=== PATIENT | female | born 1990 | race American Indian/Alaskan Native ===

== ENCOUNTER 2019-09-10 20:47 | Inpatient (IN) | payer MEDICAID, OTHER ==
[2019-09-10] MEDS ORDERED: levETIRAcetam 1000 MG/NS 0.75% 1,000 MG/100 ML BAG IV ONE (21:16)
--- NOTE | 2019-09-10 21:16 | Emergency Department Report ---
HPI - General Time Seen by Provider: 09/10/19 20:51 - HPI HPI: Room 3 The patient is an adult female presenting with a chief complaint of status epilepticus. Per EMS they arrived at the home with report of seizures. Per family the patient had 3 seizures prior to EMS arrival. Upon EMS arrival patient was having a generalized tonic-clonic seizure. The patient was administered Ativan 2 mg nasally 2. EMS states the patient has been seizing for approximately 15 minutes and may have stopped for approximately 2-3 minutes during that time. Patient is currently postictal and does not respond to sternal rub Location: [See above] Duration: [See above] Quality: [See above] Severity: [See above] Timing: [See above] Context: [See above] Modifying factors: [See above] Associated signs and symptoms: [see above] ED Past Medical Hx - Past Medical History Previous Medical History?: Yes Hx Hypertension: Yes Hx Seizures: Yes - Surgical History Past Surgical History?: Yes Additional Surgical History: unknown/ unable to obtain patient is drowsy - Family History Family history: no significant - Social History Smoking Status: Unknown if ever smoked Substance Use Type: None ED Review of Systems ROS: Stated complaint: SEIZURES Other details as noted in HPI Comment: Unobtainable due to pts medical conditions Physical Exam - Physical Exam Vital Signs: Vital Signs 09/10/19 20:51 Temperature 98.6 F Pulse Rate 101 H Respiratory 16 Rate Blood Pressure 152/68 Blood Pressure 156/82 [Left] O2 Sat by Pulse 100 Oximetry Physical Exam: GENERAL: The patient is well-developed well-nourished []. [] HEENT: Normocephalic. Atraumatic. Extraocular motions are intact. Patient has moist mucous membranes. NECK: Supple. No meningitic signs are noted. There is no adenopathy noted. CHEST/LUNGS: Clear to auscultation. There is no respiratory distress noted. HEART/CARDIOVASCULAR: Regular. There is no tachycardia. There is no gallop rub or murmur. ABDOMEN: Abdomen is soft, nontender. Patient has normal bowel sounds. There is no abdominal distention. SKIN: There is no rash. There is no edema. There is no diaphoresis. NEURO: The patient is awake, alert, and oriented. The patient is cooperative. The patient has no focal neurologic deficits. The patient has normal speech and gait. MUSCULOSKELETAL: There is no tenderness or deformity. There is no limitation range of motion. There is no evidence of acute injury. ED Course Vital Signs 09/10/19 20:51 Temperature 98.6 F Pulse Rate 101 H Respiratory 16 Rate Blood Pressure 152/68 Blood Pressure 156/82 [Left] O2 Sat by Pulse 100 Oximetry - Reevaluation(s) Reevaluation #1: 09/10/19 21:55 Patient began having another "seizure" which did not stop with sternal rub or ammonia capsule administration. Subsequently the decision to intubate using RSI was made for status epilepticus - Intubation Time Out Performed: No Sedative: Versed Mg Given: 5 Paralytic: Succinylcholine Mg Given: 100 Laryngoscope: Cher Size: 3 ET Tube Size: 7 Tube Secured Depth (cm): 21 Tube Secured Location: lips Tube Placement Confirmation: visualized tube passing t, equal breath sounds bilat, no breath sounds over epi, confirmation by capnometr Patient Tolerated Procedure: well, no complications Intubation Complications: none ED Medical Decision Making - Lab Data Result diagrams: 09/10/19 21:04 09/10/19 21:04 Laboratory Tests 09/10/19 09/10/19 09/10/19 12:56 21:04 21:04 WBC 7.0 RBC 4.43 Hgb 12.4 Hct 38.5 MCV 87 MCH 28 MCHC 32 RDW 21.1 H Plt Count 314 Lymph % (Auto) 43.8 H [place] % (Auto) 7.8 H Eos % (Auto) 1.5 Baso % (Auto) 0.7 Lymph # 3.1 [place] # 0.6 Eos # 0.1 Baso # 0.0 Seg Neutrophils % 46.2 Seg Neutrophils # 3.3 Sodium 141 Potassium 4.2 Chloride 104.1 Carbon Dioxide 18 L Anion Gap 23 BUN 15 Creatinine 0.8 Estimated GFR > 60 BUN/Creatinine Ratio 19 Glucose 86 Calcium 9.4 Magnesium 2.00 HCG, Qual Negative Phenytoin 09/10/19 21:04 WBC RBC Hgb Hct MCV MCH MCHC RDW Plt Count Lymph % (Auto) [place] % (Auto) Eos % (Auto) Baso % (Auto) Lymph # [place] # Eos # Baso # Seg Neutrophils % Seg Neutrophils # Sodium Potassium Chloride Carbon Dioxide Anion Gap BUN Creatinine Estimated GFR BUN/Creatinine Ratio Glucose Calcium Magnesium HCG, Qual Phenytoin 0.8 L - Radiology Data Radiology results: report reviewed (chest x-ray, CT head), image reviewed (chest x-ray, CT head) interpreted by me: Chest x-ray-ET tube in place. No pneumothorax [address] [address] XRay Report Signed Patient: CHRISTOPHER ARNETT MR#: [id number] : 1990 Acct:[id number] Age/Sex: 29 / F ADM Date: 09/10/19 Loc: ED Attending Dr: Ordering Physician: SARANYA DE SANTIAGO MD Date of Service: 09/10/19 Procedure(s): XR chest 1V ap Accession Number(s): [id number] cc: SARANYA DE SANTIAGO MD Fluoro Time In Minutes: CHEST 1 VIEW INDICATION: status post intubation. COMPARISON: Endotracheal tube and NG tube in satisfactory position. FINDINGS: Support devices: 06/20/2018. Heart: Within normal limits. Lungs/Pleura: No acute air space or interstitial disease. Additional findings: None. IMPRESSION: 1. Lines and tubes in satisfactory position. 2. Lungs clear. Signer Name: Jean Weeks MD Signed: 09/10/2019 10:18 PM Workstation Name: [id number] Transcribed By: ES Dictated By: Jean Weeks MD Electronically Authenticated By: Jean Weeks MD Signed Date/Time: 09/10/192217 DD/ 16 TD/TT: [address] [address] Cat Scan Report Signed Patient: CHRISTOPHER ARNETT MR#: [id number] : 1990 Acct:[id number] Age/Sex: 29 / F ADM Date: 09/10/19 Loc: ED Attending Dr: Ordering Physician: SARANYA DE SANTIAGO MD Date of Service: 09/10/19 Procedure(s): CT head/brain wo con Accession Number(s): [id number] cc: SARANYA DE SANTIAGO MD CT HEAD WITHOUT CONTRAST HISTORY: status epilepticus COMPARISON: None TECHNIQUE: CT imaging of the head was performed in the axial, sagittal, and coronal projections and bone algorithm in axial projection in the soft tissue algorithm. All CT scans at this location are performed using CT dose reduction for ALARA by means of automated exposure control. CONTRAST: None. FINDINGS: Cerebral and Cerebellar Hemispheres: No evidence of mass or mass effect. No midline shift. No acute hemorrhage. No acute cortical infarction. No extra-axial fluid collection. Ventricles: Normal in size and configuration for age. Osseous Structures: No significant abnormality. Visualized Paranasal Sinuses: No significant abnormality. Additional Findings: None IMPRESSION: 1. No acute intracranial abnormality. NOTE: Acute infarct may not be visible by noncontrast CT. Signer Name: Delonte Perez MD Signed: 09/11/2019 12:55 AM Workstation Name: [id number] Transcribed By: WG Dictated By: Delonte Perez MD Electronically Authenticated By: Delonte Perez MD Signed Date/Time: 09/11/1954 DD/ TD/TT: - Differential Diagnosis status epilepticus Critical care attestation.: If time is entered above; I have spent that time in minutes in the direct care of this critically ill patient, excluding procedure time. ED Disposition Clinical Impression: Status epilepticus Disposition: DC-09 OP ADMIT IP TO THIS HOSP Is pt being admited?: Yes Does the pt Need Aspirin: No Condition: Fair Ref[facility]: [facility] MD KIM[place]LY [Primary Care Provider] - 3-5 Days Time of Disposition: 01:04 (hospitalist paged (Dr De Leon))
[2019-09-10 21:40] LABS: Basophils % (Auto) 0.7 % (0.0-1.8); Eosinophils # (Auto) 0.1 K/mm3 (0.0-0.4); Eosinophils % (Auto) 1.5 % (0.0-4.3); Hematocrit 38.5 % (30.3-42.9); Hemoglobin 12.4 gm/dl (10.1-14.3); Lymphocytes # (Auto) 3.1 K/mm3 (1.2-5.4); Lymphocytes % (Auto) 43.8 % (13.4-35.0); Mean Corpuscular HGB Conc 32 % (30-34); Mean Corpuscular Volume 87 fl (79-97); Monocytes # (Auto) 0.6 K/mm3 (0.0-0.8); Monocytes % (Auto) 7.8 % (0.0-7.3); Platelet Count 314 K/mm3 (140-440); Red Blood Count 4.43 M/mm3 (3.65-5.03); Red Cell Distribution Width 21.1 % (13.2-15.2)
[2019-09-10] MEDS ORDERED: AMMONIA INHALANT IH ONE ×2 (21:45→21:46)
[2019-09-10 21:56] LABS: BUN/Creatinine Ratio 19; Blood Urea Nitrogen 15 mg/dL (7-17); Calcium 9.4 mg/dL (8.4-10.2); Hemolysis Index 30
[2019-09-10] MEDS ORDERED: FOSPHENYTOIN 1,000 MG.PE in SODIUM CHLORIDE 0.9% 100 ML IV ONE (22:21)
--- NOTE | 2019-09-10 22:22 | XRay Report ---
CHEST 1 VIEW INDICATION: status post intubation. COMPARISON: Endotracheal tube and NG tube in satisfactory position. FINDINGS: Support devices: 06/20/2018. Heart: Within normal limits. Lungs/Pleura: No acute air space or interstitial disease. Additional findings: None. IMPRESSION: 1. Lines and tubes in satisfactory position. 2. Lungs clear. Signer Name: Jean Weeks MD Signed: 09/10/2019 10:18 PM Workstation Name: [id number]
[2019-09-10] MEDS ORDERED: MIDAZOLAM 2 MG/2 ML INJ IV PRN (22:41)
[2019-09-10] MEDS ORDERED: MINERAL OIL/PETROLATUM, WHITE OPHTH OINT 3.5 GM OU PRN (22:41)
[2019-09-10] MEDS ORDERED: LIP THERAPY VASELINE TP PRN (22:41)
[2019-09-10] MEDS ORDERED: MIDAZOLAM 100 MG in SODIUM CHLORIDE 0.9% 80 ML IV SCH (23:00)
--- NOTE | 2019-09-11 01:00 | Cat Scan Report ---
CT HEAD WITHOUT CONTRAST HISTORY: status epilepticus COMPARISON: None TECHNIQUE: CT imaging of the head was performed in the axial, sagittal, and coronal projections and bone algori thm in axial projection in the soft tissue algorithm. All CT scans at this location are performed using CT dose reduction for ALARA by means of automated e xposure control. CONTRAST: None. FINDINGS: Cerebral and Cerebellar Hemispheres: No evidence of mass or mass effect. No midline shift. No acute hemorrhage. No acute cortical infarction. No extra-axial fluid collection. Ventricles: Normal in size and configuration for age. Osseous Structures: No significant abnormality. Visualized Paranasal Sinuses: No significant abnormality. Additional Findings: None IMPRESSION: 1. No acute intracranial abnormality. NOTE: Acute infarct may not be visible by noncontrast CT. Signer Name: Delonte Perez MD Signed: 09/11/2019 12:55 AM Workstation Name: [id number]
[2019-09-11] MEDS ORDERED: ACETAMINOPHEN 325 MG TAB PO PRN (02:26)
[2019-09-11] MEDS ORDERED: MAGNESIUM HYDROXIDE (MOM) ORAL LIQD UDC PO PRN (02:26)
[2019-09-11] MEDS ORDERED: ONDANSETRON 4 MG/2 ML INJ IV PRN (02:26)
[2019-09-11] MEDS ORDERED: MORPHINE 2 MG/1 ML INJ IV PRN (02:26)
[2019-09-11] MEDS ORDERED: LIDOCAINE PF 100 MG/5 ML (CARDIAC SYRINGE) IV ONE (03:00)
[2019-09-11] MEDS ORDERED: SUCCINYLCHOLINE CHLORIDE 200 MG/10 ML INJ MDV ONE (03:00)
[2019-09-11] MEDS ORDERED: MIDAZOLAM 5 MG/5 ML INJ MDV IV ONE (03:00)
--- NOTE | 2019-09-11 03:44 | History and Physical Report ---
History of Present Illness Date of examination: 09/11/19 Date of admission: 09/11/19 03:23 Chief complaint: Seizure disorder History of present illness: 29-year-old -Japanese female with history of seizure disorder was brought into the emergency room today by EMS having had seizures at home. She was said to have had 3 episodes of seizures prior to reporting to the emergency room. There has been no known history of head injury, no urinary or fecal incont inence. Patient was loaded with IV Keppra and Dilantin in the emergency room. She was also subsequently intubated for airway protection in the emergency room. Past History Past Medical History: hypertension, seizures Past Surgical History: No surgical history Social history: no significant social history Family history: no significant family history Medications and Allergies Allergies Allergy/AdvReac Type Severity Reaction Status Date / Time Unable to Assess Allergy Verified 09/10/19 22:24 Active Meds: Active Medications Acetaminophen (Tylenol) 650 mg PO Q4H PRN PRN Reason: Pain MILD(1-3)/Fever >100.5/GARRETT Hydrophilic Ointment (Vaseline Lip Therapy) 1 applic TP Q2HR PRN PRN Reason: Dry Lips Midazolam HCl 100 mg/ Sodium (Chloride) 100 mls @ 2 mls/hr IV TITR WALLACE; Protocol Levetiracetam 500 mg/ Dextrose 105 mls @ 400 mls/hr IV Q12HR WALLACE Magnesium Hydroxide (Milk Of Magnesia) 30 ml PO Q4H PRN PRN Reason: Constipation Midazolam HCl (Versed) 2 mg IV Q10MIN PRN PRN Reason: Sedation Morphine Sulfate (Morphine) 2 mg IV Q4H PRN PRN Reason: Pain, Moderate (4-6) Multi-Ingred Cream/Lotion/Oil/Oint (Artificial Tears Ophth Oint) 1 applic OU Q4HR PRN PRN Reason: Dry Eye(s) Ondansetron HCl (Zofran) 4 mg IV Q8H PRN PRN Reason: Nausea And Vomiting Sodium Chloride (Sodium Chloride Flush Syringe 10 Ml) 10 ml IV BID WALLACE Sodium Chloride (Sodium Chloride Flush Syringe 10 Ml) 10 ml IV PRN PRN PRN Reason: LINE FLUSH Review of Systems ROS unobtainable: due to endotracheal tube Exam - Constitutional Vitals: Temp Pulse Resp BP Pulse Ox 98.6 F 87 15 129/81 100 09/10/19 20:51 09/11/19 00:30 09/11/19 03:00 09/11/19 03:34 09/11/19 03:34 General appearance: Present: well-nourished, other (Intubated, alert and able to make gestures) - EENT Eyes: Present: PERRL, EOM intact ENT: hearing intact, clear oral mucosa, dentition normal - Neck Neck: Present: supple, normal ROM - Respiratory Respiratory effort: normal Respiratory: bilateral: CTA - Cardiovascular Rhythm: regular Heart Sounds: Present: S1 & S2 - Extremities Extremities: no ischemia, pulses intact, No edema, Full ROM Peripheral Pulses: within normal limits - Abdominal General gastrointestinal: Present: soft, non-tender, non-distended, normal bowel sounds - Integumentary Integumentary: Present: clear, warm, dry - Musculoskeletal Musculoskeletal: strength equal bilaterally - Psychiatric Psychiatric: appropriate mood/affect, intact judgment & insight, cooperative - Neurologic Neurologic: CNII-XII intact, moves all extremities Results - Labs CBC & Chem 7: 09/10/19 21:04 09/10/19 21:04 Labs: Abnormal lab results 09/10/19 09/10/19 09/10/19 Range/Units 21:04 21:04 21:04 RDW 21.1 H (13.2-15.2) % Lymph % (Auto) 43.8 H (13.4-35.0) % [place] % (Auto) 7.8 H (0.0-7.3) % POC ABG pO2 (80-105) Carbon Dioxide 18 L (22-30) mmol/L Phenytoin 0.8 L (10.0-20.0) ug/mL 09/10/19 Range/Units 22:57 RDW (13.2-15.2) % Lymph % (Auto) (13.4-35.0) % [place] % (Auto) (0.0-7.3) % POC ABG pO2 181 H (80-105) Carbon Dioxide (22-30) mmol/L Phenytoin (10.0-20.0) ug/mL Assessment and Plan - Patient Problems (1) Status epilepticus Current Visit: Yes Status: Acute Plan to address problem: Patient has been started on IV Keppra . She has been loaded with IV Keppra and Dilantin in the emergency room. We requested neurology follow-up in the a.m. (2) DVT prophylaxis Current Visit: Yes Status: Acute Plan to address problem: Patient placed on subcutaneous heparin. (3) Full code status Current Visit: Yes Status: Acute
[2019-09-11 07:19] LABS: Amphetamine Screen,Urine PRESUMPTIVE NEGATIVE; Cannabinoid Screen,Urine PRESUMPTIVE NEGATIVE; Cocaine Screen,Urine PRESUMPTIVE NEGATIVE; Methadone Screen,Urine PRESUMPTIVE NEGATIVE; Opiate Screen,Urine PRESUMPTIVE NEGATIVE
[2019-09-11 07:33] LABS: Benzodiazepines Screen,Urine PRESUMPTIVE POSITIVE
--- NOTE | 2019-09-11 07:56 | XRay Report ---
CHEST 1 VIEW INDICATION / CLINICAL INFORMATION: follow up respiratory failure. COMPARISON: 09/10/2019 FINDINGS: SUPPORT DEVICES: Endotracheal tube remains in satisfactory position. Nasogastric tube is no longer id entified. HEART / MEDIASTINUM: No significant abnormality. LUNGS / PLEURA: No significant pulmonary or pleural abnormality. No pneumothorax. ADDITIONAL FINDINGS: No significant additional findings. IMPRESSION: 1. No acute findings. Signer Name: García Mora MD Signed: 09/11/2019 7:52 AM Workstation Name: [id number]
[2019-09-11] MEDS ORDERED: levETIRAcetam 500 MG in DEXTROSE 5% IN WATER 100 ML IV SCH (10:00)
--- NOTE | 2019-09-11 10:58 | Consultation ---
History of Present Illness Consult date: 09/11/19 Reason for consult: other (Seizures) History of present illness: PULMONARY AND CRITICAL CARE C ONSULTATION DR. VINCENT THANK YOU FOR ASKING US TO PARTICIPATE IN THE CARE OF THIS PATIENT. 29-year-old -Serbian female with history of seizure disorder was brought into the emergency room today by EMS having had seizures at home. She was said to have had 3 episodes of seizures prior to reporting to the emergency room. There has been no known history of head injury, no urinary or fecal in continence. Patient was loaded with IV Keppra and Dilantin in the emergency room. She was also subsequently intubated for airway protection in the emergency room. Patient placed on assist control mechanical ventilation. Patient tolerated good. Patient awake and following commands. Patient placed on Pressure support ventilation with PS of 10, FIO2 25%, PEEP 6 and O2 saturation running 100%. Patient has history of hypertension and asthma. No history of smoking, alcohol or drug abuse. Not . No children. Allergies not known at this time. Says never worked. Chest xray ET tube in place. No acute infiltrates. Past History Past Medical History: hypertension, seizures Past Surgical History: No surgical history Social history: no significant social history Family history: no significant family history Medications and Allergies Allergies Allergy/AdvReac Type Severity Reaction Status Date / Time Unable to Assess Allergy Verified 09/10/19 22:24 Active Meds: Active Medications Acetaminophen (Tylenol) 650 mg PO Q4H PRN PRN Reason: Pain MILD(1-3)/Fever >100.5/GARRETT Heparin Sodium (Porcine) (Heparin) 5,000 unit SUB-Q Q8HR WALLACE Hydrophilic Ointment (Vaseline Lip Therapy) 1 applic TP Q2HR PRN PRN Reason: Dry Lips Midazolam HCl 100 mg/ Sodium (Chloride) 100 mls @ 2 mls/hr IV TITR WALLACE; Protocol Levetiracetam 500 mg/ Dextrose 105 mls @ 400 mls/hr IV Q12HR WALLACE Magnesium Hydroxide (Milk Of Magnesia) 30 ml PO Q4H PRN PRN Reason: Constipation Midazolam HCl (Versed) 2 mg IV Q10MIN PRN PRN Reason: Sedation Morphine Sulfate (Morphine) 2 mg IV Q4H PRN PRN Reason: Pain, Moderate (4-6) Multi-Ingred Cream/Lotion/Oil/Oint (Artificial Tears Ophth Oint) 1 applic OU Q4HR PRN PRN Reason: Dry Eye(s) Ondansetron HCl (Zofran) 4 mg IV Q8H PRN PRN Reason: Nausea And Vomiting Sodium Chloride (Sodium Chloride Flush Syringe 10 Ml) 10 ml IV BID WALLACE Sodium Chloride (Sodium Chloride Flush Syringe 10 Ml) 10 ml IV PRN PRN PRN Reason: LINE FLUSH Physical Examination Vital signs: Vital Signs Pulse Resp Pulse Ox 103 H 13 98 09/10/19 16:52 09/10/19 16:52 09/10/19 16:52 General appearance: no acute distress, alert, other (Resting on pressure support ventilation.) Eyes: non-icteric ENT: oropharynx moist Neck: supple, no JVD Ascultation: Bilateral: clear Cardiovascular: regular rate and rhythm Gastrointestinal: normoactive bowel sounds, soft, non-tender Integumentary: normal Extremities: no cyanosis, no edema Musculoskeletal: no deformities Gait: other (Can not assess at this time.) normal mental status, non-focal exam, pupils equal and round, CN II-XII normal mood appropriate Results - Laboratory Findings CBC and BMP: 09/10/19 21:04 09/10/19 21:04 ABG POC ABG pH 7.416 (7.35-7.45) 09/11/19 03:57 POC ABG pCO2 39.0 (35-45) 09/11/19 03:57 POC ABG pO2 123 (80-105) H 09/11/19 03:57 POC ABG HCO3 25.0 (22-26 mml/L) 09/11/19 03:57 POC ABG Total CO2 26 (23-27mmol/L) 09/11/19 03:57 POC ABG O2 Sat 99 09/11/19 03:57 Abnormal lab findings: Abnormal Labs 09/10/19 09/10/19 09/10/19 21:04 21:04 21:04 RDW 21.1 H Lymph % (Auto) 43.8 H [place] % (Auto) 7.8 H POC ABG pO2 Carbon Dioxide 18 L Phenytoin 0.8 L 09/10/19 09/11/19 22:57 03:57 RDW Lymph % (Auto) [place] % (Auto) POC ABG pO2 181 H 123 H Carbon Dioxide Phenytoin - Diagnostic Findings Chest x-ray: report reviewed (ET TUBE IN PLACE. NO ACUTE FINDIGS), image reviewed Assessment and Plan 29-year-old -Serbian female with history of seizure disorder was brought into the emergency room today by EMS having had seizures at home. She was said to have had 3 episodes of seizures prior to reporting to the emergency room. There has been no known history of head injury, no urinary or fecal incontinence. Patient was loaded with IV Keppra and Dilantin in the emergency room. She was also subsequently intubated for airway protection in the emergency room. Patient placed on assist control mechanical ventilation. Patient tolerated good. Patient awake and following commands. Patient placed on Pressure support ventilation with PS of 10, FIO2 25%, PEEP 6 and O2 saturation running 100%. Patient has history of hypertension and asthma. No history of smoking, alcohol or drug abuse. Not . No children. Allergies not known at this time. Says never worked. Chest xray ET tube in place. No acute infiltrates. I spent critical care time of 50 minutes obtaining history, examining the patient, review chest xray, lab work, talking to the respiratory therapy, nursing staff and work out plan of treatment. - Patient Problems (1) Status epilepticus Current Visit: Yes Status: Acute Plan to address problem: Patient intubated for airway protection. Patient is on versed and Keppra. Seizure management as per neurology. (2) Acute respiratory failure, unspecified whether with hypoxia or hypercapnia Current Visit: Yes Status: Acute Plan to address problem: Patient intubated for air way protection. (3) HTN (hypertension) Current Visit: Yes Status: Acute Plan to address problem: Management as per primary care.
--- NOTE | 2019-09-11 11:34 | Event Note ---
Date: 09/11/19 Patient reevaluated no seizures intubated Weaning in progress Patient may be extubated Will discuss with Dr. Montano
[2019-09-11] MEDS ORDERED: levETIRAcetam 1000 MG/NS 0.75% 1,000 MG/100 ML BAG IV ONE ×2 (12:37→22:00)
--- NOTE | 2019-09-11 13:38 | Consultation ---
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 PHT level is subtx, 0.8, keppra level not sent pt reported to be on keppra and pht, she admits to being VPA in past, but not on combo keppra VPA pt agrees keppra is 500 bid, never been on 1500 bid, not sure why PHT was added before max keppra pt arrives w back to back started w/o provocation yesterday, she had fevers a week ago, but not sick recently , no sleep loss, no illness, pt denies being preg or any chance of being preg HGc neg 3 back to back lasting about 15 min, had another in ER after ativan given, intubated w midaz and morphine, now w/o sedation intubated awake communicative no further sz after loaded w fos/keppra agrees to GARRETT global 01/25 non radiating no n/v no fever no neck stiff no rash no change of vision no injury CT head reviewed and neg EKG nsr labs reassuring UDS neg again recent back to [facility] non remitting , ativan x 2 had to be intubated for airway and arresting status , not responding low GCS ABG ph 3.33 normal 02, CO2 moving all ext well denies n/t focal brain deficits no dv no vertigo ROS : cant obtain d/t intubation but see above FH; neg for neuro dis SH no etoh tob drugs pt admits to more than 10 sz this year, missing meds doses, prolonged sz in the past Past History Past Medical History: hypertension, seizures Past Surgical History: No surgical history Social history: no significant social history Family history: no significant family history Medications and Allergies Allergies Allergy/AdvReac Type Severity Reaction Status Date / Time Unable to Assess Allergy Verified 09/10/19 22:24 Active Meds: Active Medications Acetaminophen (Tylenol) 650 mg PO Q4H PRN PRN Reason: Pain MILD(1-3)/Fever >100.5/GARRETT Heparin Sodium (Porcine) (Heparin) 5,000 unit SUB-Q Q8HR [facility] Hydrophilic Ointment (Vaseline Lip Therapy) 1 applic TP Q2HR PRN PRN Reason: Dry Lips Midazolam HCl 100 mg/ Sodium (Chloride) 100 mls @ 2 mls/hr IV TITR WALLACE; Protocol Levetiracetam 500 mg/ Dextrose 105 mls @ 400 mls/hr IV Q12HR [facility] Last Admin: 09/11/19 12:41 Dose: 400 mls/hr Documented by: Magnesium Hydroxide (Milk Of Magnesia) 30 ml PO Q4H PRN PRN Reason: Constipation Midazolam HCl (Versed) 2 mg IV Q10MIN PRN PRN Reason: Sedation Morphine Sulfate (Morphine) 2 mg IV Q4H PRN PRN Reason: Pain, Moderate (4-6) Multi-Ingred Cream/Lotion/Oil/Oint (Artificial Tears Ophth Oint) 1 applic OU Q4HR PRN PRN Reason: Dry Eye(s) Ondansetron HCl (Zofran) 4 mg IV Q8H PRN PRN Reason: Nausea And Vomiting Sodium Chloride (Sodium Chloride Flush Syringe 10 Ml) 10 ml IV BID [facility] Last Admin: 09/11/19 13:09 Dose: 10 ml Documented by: Sodium Chloride (Sodium Chloride Flush Syringe 10 Ml) 10 ml IV PRN PRN PRN Reason: LINE FLUSH Physical Examination - Vital Signs Vital Signs: Vital Signs Pulse Resp Pulse Ox 103 H 13 98 09/10/19 16:52 09/10/19 16:52 09/10/19 16:52 awake alert intubated not sedated fsc good tracking CN 2-12 intact , eomi perrl no d/c nose ears neck supple trachea midline no dv vff no extra movements what so ever, no interictal stereotypical movements 5/5 strength to all limbs pt admits LT intact to all limbs tone symm and normal to all limbs no cerebellar signs abd soft skin intact pulses good x 4 no rash no signs of agnosia Results - Laboratory Findings CBC and BMP: 09/10/19 21:04 09/10/19 21:04 Abnormal Lab Findings: Abnormal Labs 09/10/19 09/10/19 09/10/19 21:04 21:04 21:04 RDW 21.1 H Lymph % (Auto) 43.8 H [place] % (Auto) 7.8 H POC ABG pH POC ABG pO2 Carbon Dioxide 18 L Phenytoin 0.8 L 09/10/19 09/11/19 09/11/19 22:57 03:57 13:13 RDW Lymph % (Auto) [place] % (Auto) POC ABG pH 7.338 L POC ABG pO2 181 H 123 H Carbon Dioxide Phenytoin Assessment and Plan status epilepticus, hx of reported generalized seizure d/o , back to back sz since last night, finally broke after ativan , midaz loaded w pht, LVT, and intubation, no further sz in er, no interictal sz activity , unstable ct head neg exam non focal back to baseline mental status based on hx and labs, non compliance to AED pt has never been max dose of keppra , not sure why she is on PHT which is a narrow spec. AED, less indicated for gen. sz d/o, I dont lilke this combo would prefer VPA and Keppra, but at this time would cont w keppra 1000 IV bid, can go up to 1500 bid IV if recurrent sz once at 1500 bid of keppra and pt is still having her gen.t/c sz, then add vpa at 500 bid d/c fosphen sz precautions education on med compliance wean off vent per pulm and attending unfort no keppra levels sent I dont need an eeg, follow pt clinically, if mental status is declining please call neuro via chopper gun operator can f/u w neuro outpt will follow during stay
[2019-09-11] MEDS ORDERED: LORazepam 2 MG/ML VIAL ONE (21:04)
[2019-09-11] MEDS: LORazepam 2 MG/ML VIAL IV PRN ×3 (21:29→22:36)
[2019-09-11] MEDS ORDERED: levETIRAcetam 1,000 MG in DEXTROSE 5% IN WATER 100 ML IV SCH (22:00)
[2019-09-11] MEDS: HEPARIN 5,000 UNIT/1 ML VIAL SUB-Q SCH (22:40)
[2019-09-11] MEDS ORDERED: levETIRAcetam 500 MG in DEXTROSE 5% IN WATER 100 ML IV ONE (23:45)
[2019-09-12] MEDS: HEPARIN 5,000 UNIT/1 ML VIAL SUB-Q SCH ×3 (01:51→14:26)
--- NOTE | 2019-09-12 02:27 | Event Note ---
Date: 09/12/19 Was asked by the night hospitalist to place and IV on this patient. The patient. Had previously had a IV in the foot which dislodged secondary to the patient's constant shaking back and forth. Attempted to IV line placement in the bilateral antecubital fossa with SOUND guidance. Able to thread the 20- gauge IV into a vessel in the left antecubital space however this did appear to be arterial once the needle was removed. I was also unable to flush this time. No eye was removed. A 22-gauge needle was attempted on the right with ultrasou nd guidance and this was unsuccessful. Table to obtain any IO. During IO placement on the left anterior proximal tibia of the patient did stop shaking and test of her left lower extremity. Patient after flushing the line immediately started yelling that her knee was hurting. There was no postictal phase. Lab was secured. Patient tolerated procedure well.
[2019-09-12] MEDS: LORazepam 2 MG/ML VIAL IV PRN (05:52)
--- NOTE | 2019-09-12 08:38 | XRay Report ---
CHEST 1 VIEW INDICATION: follow up respiratory failure. COMPARISON: 09/11/2019 FINDINGS: Support devices: The endotracheal tube has been removed. Heart: Within normal limits. Lungs/Pleura: No acute air space or interstitial disease. Additional findings: None. IMPRESSION: Normal AP chest. Signer Name: Roldan Peng Jr, MD Signed: 09/12/2019 8:34 AM Workstation Name: [id number]
[2019-09-12 09:57] LABS: Basophils % (Auto) 0.5 % (0.0-1.8); Eosinophils # (Auto) 0.1 K/mm3 (0.0-0.4); Eosinophils % (Auto) 0.6 % (0.0-4.3); Hematocrit 35.5 % (30.3-42.9); Hemoglobin 11.6 gm/dl (10.1-14.3); Lymphocytes # (Auto) 2.2 K/mm3 (1.2-5.4); Lymphocytes % (Auto) 21.6 % (13.4-35.0); Mean Corpuscular HGB Conc 33 % (30-34); Mean Corpuscular Volume 86 fl (79-97); Monocytes # (Auto) 0.6 K/mm3 (0.0-0.8); Monocytes % (Auto) 6.2 % (0.0-7.3); Platelet Count 268 K/mm3 (140-440); Red Blood Count 4.14 M/mm3 (3.65-5.03)
[2019-09-12] MEDS ORDERED: levETIRAcetam 500 MG TAB PO SCH ×2 (10:00→22:00)
[2019-09-12] MEDS ORDERED: levETIRAcetam 1,500 MG in DEXTROSE 5% IN WATER 100 ML IV SCH (10:00)
[2019-09-12 10:04] LABS: Red Cell Distribution Width 21.2 % (13.2-15.2)
--- NOTE | 2019-09-12 10:04 | Discharge Summary ---
Providers - Providers Date of Admission: 09/11/19 03:23 Date of discharge: 09/12/19 Attending physician: FELICIANO VINCENT 09/10/19 22:42 Consult to Dietitian/Nutrition [CONS] Routine Physician Instructions: Reason For Exam: Reason for Consult: Evaluate nutritional intake 09/11/19 02:26 Consult to Physician [CONS] Routine Comment: Consulting Provider: MOUNA COMBS Physician Instructions: Reason For Exam: respiratory failure 09/11/19 02:34 Consult to Physician [CONS] Routine Comment: Consulting Provider: STEFANY QUIROS Physician Instructions: Reason For Exam: STATUS EPILEPTICUS [facility] Condition: Fair Hospital course: 29-year-old -Swedish female with history of seizure disorder was brought into the emergency room today by EMS having had seizures at home. She was said to have had 3 episodes of seizures prior to reporting to the emergency room. There has been no known history of head injury, no urinary or fecal incontinence. Patient was loaded with IV Keppra and Dilantin in the emergency room. She was also subsequently intubated for airway protection in the emergency room. patient was extubated yesterday. Post extubation doing well Doing well. No further seizures (1) Status epilepticus Current Visit: Yes Status: Acute Plan to address problem: Patient has been started on IV Keppra . She has been loaded with IV Keppra and Dilantin in the emergency room. We requested neurology follow-up in the a.m. Neuro- consult :"based on hx and labs, non compliance to AED pt has never been max dose of keppra , not sure why she is on PHT which is a narrow spec. AED, less indicated for gen. sz d/o, I dont lilke this combo would prefer VPA and Keppra, but at this time would cont w keppra 1000 IV bid, can go up to 1500 bid IV if recurrent sz once at 1500 bid of keppra and pt is still having her gen.t/c sz, then add vpa at 500 bid d/c fosphen sz precautions education on med compliance wean off vent per pulm and attending unfort no keppra levels sent I dont need an eeg, follow pt clinically, if mental status is declining please call neuro via wood dowel machine operator can f/u w neuro outpt" Disposition: DC- TO HOME OR SELFCARE Core Measure Documentation - Palliative Care Palliative Care/ Comfort Measures: Not Applicable - Core Measures Any of the following diagnoses?: none Exam - Constitutional Vitals: Temp Pulse Resp BP Pulse Ox 98.1 F 93 H 20 122/69 94 09/12/19 05:22 09/12/19 05:22 09/12/19 05:22 09/12/19 05:22 09/12/19 05:22 General appearance: Present: no acute distress, well-nourished - EENT Eyes: Present: PERRL ENT: hearing intact, clear oral mucosa - Neck Neck: Present: supple, normal ROM - Respiratory Respiratory effort: normal Respiratory: bilateral: CTA - Cardiovascular Rhythm: regular (78) Heart Sounds: Present: S1 & S2. Absent: rub, click - Extremities Extremities: no ischemia, pulses intact, pulses symmetrical, No edema Peripheral Pulses: within normal limits - Abdominal General gastrointestinal: Present: soft, non-tender, non-distended, normal bowel sounds Female genitourinary: Present: normal - Integumentary Integumentary: Present: clear, warm, dry - Musculoskeletal Musculoskeletal: gait normal, strength equal bilaterally - Psychiatric Psychiatric: appropriate mood/affect, intact judgment & insight - Neurologic Neurologic: CNII-XII intact, moves all extremities - Allied Health Allied health notes reviewed: nursing, case management Plan Activity: no restrictions Diet: regular Additional Instructions: Cannot drive for 6 [address] IF CLEARD BY NEUROLOGY Follow up with: JUAQUIN KAY MD [Primary Care Provider] - 3-5 Days
[2019-09-12 10:19] LABS: BUN/Creatinine Ratio 15; Blood Urea Nitrogen 9 mg/dL (7-17); Calcium 9.4 mg/dL (8.4-10.2); Hemolysis Index 23
[2019-09-12 10:20] LABS: INR 1.1 (0.87-1.13)
[2019-09-12 10:23] LABS: Partial Thromboplastin Time 28.6 Sec. (24.2-36.6)
[2019-09-12 10:44] VITALS: BP 117/69
[2019-09-12] MEDS ORDERED: levETIRAcetam 1,500 MG in DEXTROSE 5% IN WATER 100 ML IV ONE (11:00)
--- NOTE | 2019-09-12 11:55 | Progress Note ---
Assessment and Plan 29-year-old -[place] female with history of seizure disorder was brought into the emergency room today by EMS having had seizures at home. She was said to have had 3 episodes of seizures prior to reporting to the emergency room. There has been no known history of head injury, no urinary or fecal incontinence. Patient was loaded with IV Keppra and Dilantin in the emergency room. She was also subsequently intubated for airway protection in the emergency room. Patient placed on assist control mechanical ventilation. Patient tolerated good. Patient awake and following commands. Patient placed on Pressure support ventilation with PS of 10, FIO2 25%, PEEP 6 and O2 saturation running 100%. Patient has history of hypertension and asthma. No history of smoking, alcohol or drug abuse. Not . No children. Allergies not known at this time. Says never worked. Chest xray ET tube in place. No acute infiltrates. I spent critical care time of 50 minutes obtaining history, examining the patient, review chest xray, lab work, talking to the respiratory therapy, nursing staff and work out plan of treatment. - Patient Problems (1) Status epilepticus Current Visit: Yes Status: Acute Plan to address problem: Patient intubated for airway protection. Patient is on versed and Keppra. Seizure management as per neurology. (2) Acute respiratory failure, unspecified whether with hypoxia or hypercapnia Current Visit: Yes Status: Acute Plan to address problem: Patient intubated for air way protection. (3) HTN (hypertension) Current Visit: Yes Status: Acute Plan to address problem: Management as per primary care. Subjective Date of service: 09/12/19 Objective Vital Signs - 12hr 09/12/19 09/12/19 09/12/19 05:22 07:54 10:00 Temperature 98.1 F 97.8 F Pulse Rate 93 H 85 91 H Respiratory 20 18 Rate Blood Pressure 122/69 117/69 O2 Sat by Pulse 94 94 Oximetry Constitutional: no acute distress, alert, other (Resting on pressure support ventilation.) Eyes: non-icteric ENT: oropharynx moist Neck: supple, no JVD Ascultation: Bilateral: clear Cardiovascular: regular rate and rhythm Gastrointestinal: normoactive bowel sounds, soft, non-tender Integumentary: normal Extremities: no cyanosis, no edema Neurologic: normal mental status, non-focal exam, pupils equal and round, CN II- XII normal Psychiatric: mood appropriate CBC and BMP: 09/12/19 08:51 09/12/19 08:51 ABG, PT/INR, D-dimer: ABG POC ABG pH 7.338 (7.35-7.45) L 09/11/19 13:13 POC ABG pCO2 42.0 (35-45) 09/11/19 13:13 POC ABG pO2 80 (80-105) 09/11/19 13:13 POC ABG HCO3 22.6 (22-26 mml/L) 09/11/19 13:13 POC ABG Total CO2 24 (23-27mmol/L) 09/11/19 13:13 POC ABG O2 Sat 95 09/11/19 13:13 PT/INR, D-dimer PT 14.3 Sec. (12.2-14.9) 09/12/19 08:51 INR 1.10 (0.87-1.13) 09/12/19 08:51 Abnormal lab findings: Abnormal Labs 09/10/19 09/10/19 09/10/19 21:04 21:04 21:04 RDW 21.1 H Lymph % (Auto) 43.8 H [place] % (Auto) 7.8 H Seg Neutrophils % POC ABG pH POC ABG pO2 Chloride Carbon Dioxide 18 L Creatinine Phenytoin 0.8 L 09/10/19 09/11/19 09/11/19 22:57 03:57 13:13 RDW Lymph % (Auto) [place] % (Auto) Seg Neutrophils % POC ABG pH 7.338 L POC ABG pO2 181 H 123 H Chloride Carbon Dioxide Creatinine Phenytoin 09/12/19 09/12/19 08:51 08:51 RDW 21.2 H Lymph % (Auto) [place] % (Auto) Seg Neutrophils % 71.1 H POC ABG pH POC ABG pO2 Chloride 108.2 H Carbon Dioxide 19 L Creatinine 0.6 L Phenytoin
--- NOTE | 2019-09-12 13:16 | Progress Note ---
Assessment and Plan Involuntary movements highly suggestive of PNES, stable patient may also have a second dis. process sugg. of an epilepsy which has not been determined today based on history and eeg, she did arrive with increased seizures [id number] which were real enough to the ER team to intubate and place an interosseous IV, stable EEG highly suggestive of PNES patient had her typical seizure-like event with provocation, namely us standing in the room /nursing / photo technologist and myself, once photic stimulation started patient went into slow pelvic body like thrusting movements eyes closed no tonic no rhythmic clonic without signs of a classic epileptic seizure no prior EEG avail to compare Will back off Keppra to 500 twice a day patient will need to be followed closely by outpatient neurology f/u w psych for PNES do not give ativan stat unless seizure activity last 4.5 min Subjective Date of service: 09/12/19 Principal diagnosis: ? seizures Interval history: Today patient was reported to have recurrent seizure-like activity highly sugge stive of PNES based on nursing witness patient having her sz like event and then stopping while infusing NS via IO.IV then shaking starts up again Please read events notes Today during my EEG routine at bedside during photic stimulation patient had a typical full-body pelvic thrusting eyes closed what seems to be tonic-clonic activity however there was no rhythmic buildup or no tonic no stiffening no head turning or posturing and there was no EEG correlation, no tongue biting or bowel and bladder incontinence No postictal state patient came right back to her baseline in terms of mental status and was continuing to tell me her story about how she's had seizures since she was in her teens No focal brain complaints No fevers Tolerating Keppra NO GARRETT NO n/v pt states she can feel her events/sz coming on admits to two softball hits to the head "My sister has the report of a prior EEG I had done this year" pt sister was called, she has no report, she states her mother recently and we just "found her [Catealius]" Patient is had at least 2 events overnight resembling pseudoseizures no issues w PO intake Objective - Exam Narrative Exam: AO 4 no aphasia all cranial nerves intact EOMI PERRLA VFS tongue is midline neck is supple skin intact pulses good x 4 abdomen soft 5 out of 5 strength throughout normal sensation throughout no cerebellar signs Extra movements during photic stimulation EEG , involuntary seizure-like activity L like thrusting eyes closed no stiffening or tonic activity no rhythmic clonic activity no postictal state is highly suggestive of non- epileptic seizures or pseudoseizures - Vital Sign Vital Signs - 12hr 09/12/19 09/12/19 09/12/19 05:22 07:54 10:00 Temperature 98.1 F 97.8 F Pulse Rate 93 H 85 91 H Respiratory 20 18 Rate Blood Pressure 122/69 117/69 O2 Sat by Pulse 94 94 Oximetry - Laboratory Findings CBC and BMP: 09/12/19 08:51 09/12/19 08:51 Abnormal Lab Findings: Abnormal Labs 09/10/19 09/10/19 09/10/19 21:04 21:04 21:04 RDW 21.1 H Lymph % (Auto) 43.8 H [place] % (Auto) 7.8 H Seg Neutrophils % POC ABG pH POC ABG pO2 Chloride Carbon Dioxide 18 L Creatinine Phenytoin 0.8 L 09/10/19 09/11/19 09/11/19 22:57 03:57 13:13 RDW Lymph % (Auto) [place] % (Auto) Seg Neutrophils % POC ABG pH 7.338 L POC ABG pO2 181 H 123 H Chloride Carbon Dioxide Creatinine Phenytoin 09/12/19 09/12/19 08:51 08:51 RDW 21.2 H Lymph % (Auto) [place] % (Auto) Seg Neutrophils % 71.1 H POC ABG pH POC ABG pO2 Chloride 108.2 H Carbon Dioxide 19 L Creatinine 0.6 L Phenytoin
--- NOTE | 2019-09-12 13:35 | Electroencephalogram Report ---
Electroencephalogram EEG Date of exam: 09/12/19 History: 29-year-old female arriving with [id number] seizures concerning for status epilepticus was intubated and extubated yesterday and interosseous IV line was also placed however overnight she's been having recurrent seizure-like activity which were concerning for nonepileptic seizures this morning she is on Keppra only 20 minutes bedside EEG Exam is fully intact Impression: Normal EEGs however do not rule out epilepsy Patient's EEG is suggestive of PNES Description: This EEG was acquired electrodes with placed according to International 10-20 electrode placement system. The waking background shows an appropriate organization with well-defined anterior posterior voltage and frequency gradients. Posteriorly, there is a well-developed alpha rhythm of [ 8.5] Hz which is symmetrical and bilaterally reactive. Anteriorly, there is a pattern of lower voltage and slightly irregular theta and beta range frequencies. During photic stimulation patient started having her typical seizure-like activity with pelvic thrusting eyes closed her limbs started to shake without tonic or clonic or rhythmic activity, during the event no EEG correlation, tremendous amounts of EMG artifact, the event stopped abruptly once the nurse infused normal saline into her interosseous IV mildly causing her distress where she yelled 'ouch' when the event was over there was no postictal period Throughout, the recording there are no epileptiform abnormalities, focal or lateralizing features, or significant interhemispheric findings. Interpretation: This is a normal awake EEG During patient's seizure-like event there was no epileptiform activity or EEG correlate
== END 2019-09-12 15:51 | disposition home or self-care (01) | DRG 208 ==
LOC: EDBD → ED 20:47 → CC1 09-11 03:23 → 4A 09-11 17:42
PROVIDERS: ADMIT Internal Medicine Geriatric Medicine; ATTEND Internal Medicine
PROC: 5A1935Z Respiratory Ventilation, Less than 24 Consecutive Hours (ICD-10-PCS; principal; 2019-09-10)
PROC: 0BH17EZ Insertion of Endotracheal Airway into Trachea, Via Natural or Artificial Opening (ICD-10-PCS; 2019-09-10)
PROC: 4A033R1 Measurement of Arterial Saturation, Peripheral, Percutaneous Approach (ICD-10-PCS; 2019-09-10)
DX: J96.00 Acute respiratory failure, unspecified whether with hypoxia or hypercapnia (principal); G40.911 Epilepsy, unspecified, intractable, with status epilepticus; I10 Essential (primary) hypertension; J45.909 Unspecified asthma, uncomplicated
CPT/HCPCS: 36415; 70450; 71045; 80048; 80185; 80307; 82803; 83735; 84703; 85025; 85610; 85730; 87070; 87205; 93005; 93010; 94002; 94003; 95819; G0378; J0330; J1644; J1953; J2001; J2060; J2250; Q2009

== ENCOUNTER 2019-12-19 17:02 | Emergency (ER) | payer SELFPAY ==
[2019-12-19 17:32] LABS: Bacteria,Urine 1+ /HPF (Negative); Bilirubin,Urine NEG (Negative); Blood,Urine NEG (Negative); Color,Urine Yellow (Yellow); Mucus,Urine FEW /HPF; Protein,Urine <15 mg/dL mg/dL (Negative); Urobilinogen,Urine < 2.0 mg/dL (<2.0)
[2019-12-19 17:37] LABS: Amphetamine Screen,Urine PRESUMPTIVE NEGATIVE; Benzodiazepines Screen,Urine PRESUMPTIVE NEGATIVE; Cannabinoid Screen,Urine PRESUMPTIVE NEGATIVE; Cocaine Screen,Urine PRESUMPTIVE NEGATIVE; Methadone Screen,Urine PRESUMPTIVE NEGATIVE; Opiate Screen,Urine PRESUMPTIVE NEGATIVE
[2019-12-19 18:16] LABS: Basophils % (Auto) 0.3 % (0.0-1.8); Eosinophils # (Auto) 0.1 K/mm3 (0.0-0.4); Eosinophils % (Auto) 0.6 % (0.0-4.3); Hematocrit 37.1 % (30.3-42.9); Hemoglobin 12.2 gm/dl (10.1-14.3); Lymphocytes # (Auto) 2.5 K/mm3 (1.2-5.4); Lymphocytes % (Auto) 26.1 % (13.4-35.0); Mean Corpuscular HGB Conc 33 % (30-34); Mean Corpuscular Volume 84 fl (79-97); Monocytes # (Auto) 0.6 K/mm3 (0.0-0.8); Monocytes % (Auto) 5.9 % (0.0-7.3); Platelet Count 445 K/mm3 (140-440); Red Blood Count 4.43 M/mm3 (3.65-5.03); Red Cell Distribution Width 18.7 % (13.2-15.2)
[2019-12-19 18:35] LABS: BUN/Creatinine Ratio 14; Blood Urea Nitrogen 13 mg/dL (7-17); Hemolysis Index 6
[2019-12-19 19:01] LABS: HCG Qualitative,Urine Negative (Negative)
[2019-12-19] MEDS ORDERED: HALOPERIDOL LACTATE 5 MG/1 ML INJ IM PRN (19:01)
--- NOTE | 2019-12-19 19:09 | Emergency Department Report ---
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 She presents to the ER today with a primary complaint of suicidal ideations. She reports that she was discharged earlier on today from a psychiatric [facility]. She reports that while she was at the facility, she was insistent to the rn social services that she was still feeling suicidal. She then informs me that the psychiatrist at the facility told her that if she was still feeling suicidal, she should present to an emergency room, to "get cleared, and they could take me back." She states that after discharge, she began to feel more suicidal, and she alleges that she intentionally overdosed on her Minipress. She does not know how many tablets she took, she does not know the dose of her Minipress, she does not know if she took additional medications, and she does not know the exact time of ingestion, although she states that it was approximately 2 hours prior to arrival. Upon review of her medical records, it appears that current prescriptions include olanzapine, 10 mg daily, prazosin, 2 mg at bedtime, Zoloft, 100 mg daily, Keppra, 750 mg twice daily, metformin, 500 mg twice daily, and HCTZ, 25 mg daily. She denies physical pain at this time. She also denies fever, cough, and confirmed exposure to coronavirus. -: days(s) Consistency: constant Improves with: none Worsens with: none - Related Data Home Medications Medication Instructions Recorded Confirmed Last Taken OLANzapine [Zyprexa] 10 mg PO DAILY 12/19/19 12/19/19 Unknown Prazosin HCl 2 mg PO HS 12/19/19 12/19/19 Unknown Sertraline [Zoloft] 100 mg PO QDAY 12/19/19 12/19/19 Unknown hydroCHLOROthiazide [HCTZ] 25 mg PO QDAY 12/19/19 12/19/19 Unknown levETIRAcetam [Keppra TAB] 750 mg PO BID 12/19/19 12/19/19 Unknown metFORMIN [Glucophage] 500 mg PO BID 12/19/19 12/19/19 Unknown Allergies Allergy/AdvReac Type Severity Reaction Status Date / Time peanut Allergy Severe Anaphylaxis Verified 12/20/19 08:47 caffeine Allergy Shortness Verified 12/19/19 17:04 of Breath codeine Allergy Swelling Verified 12/19/19 17:04 Fish Containing Products Allergy Shortness Verified 12/19/19 17:04 of Breath grape Allergy Swelling Verified 12/19/19 17:04 ibuprofen Allergy Swelling Verified 12/19/19 17:04 latex Allergy Hives Verified 12/19/19 17:04 morphine Allergy Angioedema Verified 12/19/19 17:04 ondansetron [From Zofran] Allergy Hives Verified 12/19/19 17:04 pineapple Allergy Hives Verified 12/19/19 17:04 tomato Allergy Hives Verified 12/19/19 17:04 seafood Allergy Unknown Uncoded 09/12/19 10:14 ED Review of Systems ROS: Stated complaint: SUICIDAL THOUGHTS Other details as noted in HPI Constitutional: denies: fever Eyes: denies: eye discharge ENT: denies: congestion Respiratory: denies: cough Cardiovascular: denies: chest pain Gastrointestinal: denies: abdominal pain Genitourinary: denies: dysuria Musculoskeletal: as per HPI Skin: as per HPI Neurological: as per HPI Psychiatric: anxiety, depression, suicidal thoughts ED Past Medical Hx - Past Medical History Hx Hypertension: Yes Hx Sickle Cell Disease: Yes Hx Seizures: Yes Hx Psychiatric Treatment: Yes (bipolar schiz) Additional medical history: 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 - Surgical History Hx Coronary Stent: No Hx Open Heart Surgery: No Hx Pacemaker: No Hx Internal Defibrillator: No Hx Cholecystectomy: No Hx Appendectomy: No Hx Breast Surgery: No Additional Surgical History: unknown/ unable to obtain patient is drowsy - Social History Smoking Status: Never Smoker Substance Use Type: None - Medications Home Medications: Home Medications Medication Instructions Recorded Confirmed Last Taken Type OLANzapine [Zyprexa] 10 mg PO DAILY 12/19/19 12/19/19 Unknown History Prazosin HCl 2 mg PO HS 12/19/19 12/19/19 Unknown History Sertraline [Zoloft] 100 mg PO QDAY 12/19/19 12/19/19 Unknown History hydroCHLOROthiazide [HCTZ] 25 mg PO QDAY 12/19/19 12/19/19 Unknown History levETIRAcetam [Keppra TAB] 750 mg PO BID 12/19/19 12/19/19 Unknown History metFORMIN [Glucophage] 500 mg PO BID 12/19/19 12/19/19 Unknown History ED Physical Exam - General Limitations: No Limitations General appearance: alert, in no apparent distress - Head Head exam: Present: atraumatic, normocephalic - Eye Eye exam: Present: normal appearance, EOMI. Absent: nystagmus - ENT ENT exam: Present: normal exam, normal orophraynx, mucous membranes moist, normal external ear exam - Neck Neck exam: Present: normal inspection, full ROM. Absent: tenderness, meningismus - Respiratory Respiratory exam: Present: normal lung sounds bilaterally. Absent: respiratory distress - Cardiovascular Cardiovascular Exam: Present: regular rate, normal rhythm, normal heart sounds. Absent: bradycardia, tachycardia, irregular rhythm, systolic murmur, diastolic murmur, rubs, gallop - GI/Abdominal GI/Abdominal exam: Present: soft. Absent: distended, tenderness, guarding, rebound, rigid, pulsatile mass - Extremities Exam Extremities exam: Present: normal inspection, full ROM, other (2+ pulses noted in the bilateral upper and lower extremities. There is no palpable cord. negative Homans sign. Muscular compartments are soft. The pelvis is stable.). Absent: pedal edema, calf tenderness - Back Exam Back exam: Present: normal inspection, full ROM. Absent: tenderness, CVA tenderness (R), CVA tenderness (L), paraspinal tenderness, vertebral tenderness - Neurological Exam Neurological exam: Present: alert, other (There is no facial droop. The tongue is midline. Extraocular movements are intact bilaterally. There is 5 out of 5 strength in bilateral upper and lower extremities. Sensation is intact to light touch bilateral upper and lower extremities. There is a normal gait.) - Psychiatric Psychiatric exam: Present: flat affect - Skin Skin exam: Present: warm, dry, intact, normal color. Absent: rash ED Course Vital Signs 12/19/19 12/19/19 12/19/19 17:04 19:03 19:23 Temperature 99.2 F 98.9 F Pulse Rate 100 H 87 74 Respiratory 18 12 18 Rate Blood Pressure 143/101 Blood Pressure 135/87 [Left] O2 Sat by Pulse 100 99 Oximetry 12/19/19 12/19/19 12/19/19 19:30 19:45 20:00 Temperature Pulse Rate 69 86 92 H Respiratory 15 21 22 Rate Blood Pressure 134/83 134/83 135/77 Blood Pressure [Left] O2 Sat by Pulse 100 99 Oximetry 12/19/19 12/19/19 12/19/19 20:15 20:30 20:45 Temperature Pulse Rate 75 71 78 Respiratory 16 14 27 H Rate Blood Pressure 135/77 140/86 140/86 Blood Pressure [Left] O2 Sat by Pulse 100 99 100 Oximetry 12/19/19 12/19/19 12/19/19 21:00 21:15 21:31 Temperature Pulse Rate 77 80 80 Respiratory 23 11 L 28 H Rate Blood Pressure 128/85 128/85 107/63 Blood Pressure [Left] O2 Sat by Pulse 100 98 97 Oximetry 12/19/19 12/19/19 12/19/19 21:45 22:00 22:15 Temperature Pulse Rate 81 84 89 Respiratory 27 H 29 H 29 H Rate Blood Pressure 107/63 100/61 107/63 Blood Pressure [Left] O2 Sat by Pulse 97 97 96 Oximetry 12/19/19 12/19/19 12/19/19 22:30 22:45 23:00 Temperature Pulse Rate 89 95 H 87 Respiratory 27 H 21 22 Rate Blood Pressure 102/59 102/59 113/63 Blood Pressure [Left] O2 Sat by Pulse 96 99 98 Oximetry 12/19/19 12/19/19 12/19/19 23:15 23:27 23:30 Temperature Pulse Rate 87 87 84 Respiratory 17 26 H 27 H Rate Blood Pressure 102/59 102/59 102/56 Blood Pressure [Left] O2 Sat by Pulse 100 99 99 Oximetry 12/19/19 12/20/19 12/20/19 23:45 00:00 00:15 Temperature Pulse Rate 88 94 H 96 H Respiratory 29 H 31 H 27 H Rate Blood Pressure 102/56 92/52 92/52 Blood Pressure [Left] O2 Sat by Pulse 98 97 93 Oximetry 12/20/19 12/20/19 12/20/19 00:30 00:45 01:00 Temperature Pulse Rate 92 H 93 H 90 Respiratory 29 H 31 H 29 H Rate Blood Pressure 110/61 110/61 109/58 Blood Pressure [Left] O2 Sat by Pulse 95 95 95 Oximetry 12/20/19 12/20/19 12/20/19 01:15 01:30 01:45 Temperature Pulse Rate 88 90 84 Respiratory 28 H 28 H 22 Rate Blood Pressure 109/58 113/65 113/65 Blood Pressure [Left] O2 Sat by Pulse 95 96 96 Oximetry 12/20/19 12/20/19 12/20/19 02:00 02:15 02:30 Temperature Pulse Rate 83 84 88 Respiratory 26 H 24 19 Rate Blood Pressure 103/63 103/63 119/53 Blood Pressure [Left] O2 Sat by Pulse 98 98 97 Oximetry 12/20/19 12/20/19 12/20/19 02:45 03:01 03:15 Temperature Pulse Rate 85 84 85 Respiratory 14 15 7 L Rate Blood Pressure 119/53 119/53 119/53 Blood Pressure [Left] O2 Sat by Pulse 95 93 93 Oximetry 12/20/19 12/20/19 12/20/19 03:30 03:45 04:00 Temperature 98.2 F Pulse Rate 83 84 84 Respiratory 22 15 20 Rate Blood Pressure 104/68 104/68 110/63 Blood Pressure 124/74 [Left] O2 Sat by Pulse 95 96 89 Oximetry 12/20/19 12/20/19 12/20/19 04:15 04:30 04:45 Temperature Pulse Rate 83 76 86 Respiratory 18 21 24 Rate Blood Pressure 110/63 110/60 110/60 Blood Pressure [Left] O2 Sat by Pulse 96 95 96 Oximetry 12/20/19 12/20/19 12/20/19 05:01 05:15 05:30 Temperature Pulse Rate 95 H 82 89 Respiratory 14 23 15 Rate Blood Pressure 107/65 107/65 120/86 Blood Pressure [Left] O2 Sat by Pulse 95 95 96 Oximetry 12/20/19 12/20/19 12/20/19 05:45 06:00 06:15 Temperature Pulse Rate 88 83 90 Respiratory 18 18 24 Rate Blood Pressure 120/86 110/78 110/78 Blood Pressure [Left] O2 Sat by Pulse 97 96 97 Oximetry 12/20/19 12/20/19 12/20/19 06:30 06:45 07:00 Temperature Pulse Rate 88 86 85 Respiratory 22 29 H 25 H Rate Blood Pressure 105/67 105/67 123/86 Blood Pressure [Left] O2 Sat by Pulse 96 97 97 Oximetry 12/20/19 12/20/19 12/20/19 07:15 07:30 08:00 Temperature 98.6 F Pulse Rate 78 75 86 Respiratory 10 L 6 L 18 Rate Blood Pressure 123/86 119/72 Blood Pressure 120/72 [Left] O2 Sat by Pulse 98 96 98 Oximetry 12/20/19 12/20/19 12/21/19 19:30 21:40 01:44 Temperature 98.5 F 98.5 F Pulse Rate 92 H 88 Respiratory 18 18 18 Rate Blood Pressure Blood Pressure 135/80 130/80 [Left] O2 Sat by Pulse 100 96 Oximetry 12/21/19 07:34 Temperature 98.5 F Pulse Rate 89 Respiratory 18 Rate Blood Pressure Blood Pressure 131/59 [Left] O2 Sat by Pulse 96 Oximetry - Reevaluation(s) Reevaluation #1: 12/19/19 19:10 Differential diagnosis, including but not limited to: Medical clearance for psychiatric placement, history of overdose, malingering, secondary gain, dysth ymia Assessment and plan: 29-year-old female who was just discharged from a psychiatric facility today, here with recurrent suicidality and allegations of overdose. Highly suspect malingering and/or secondary gain. The patient is afebrile, with reassuring vital signs. Screening laboratory studies so far unremarkable. She does not take valproic acid currently as per her current medication reconciliation. We will place her on a alarm security or surveillance monitor, obtain EKG, I discussed with the [place] poison control center. We will also obtain a psychiatric consultation/evaluation. We will also continue her outpatient medications, and I will discuss with the [place] poison control center. Reevaluation #2: 12/19/19 23:07 Vital signs remained stable. Patient observed for greater than 6 hours without clinical or neurologic decompensation. At this point in time, she does not appear to have an immediate medical contraindication to psychiatric admission, evaluation, consultation and placement. However, I suspect secondary gain and malingering at this time, so if the psychiatry team clears the patient to be discharged, which I anticipate may be a possibility, it would be reasonable to discharge the patient's for outpatient follow-up. - Consultations Consultation #1: 12/19/19 21:12 CALLED [facility] WHO STATES TO KEEP PT FOR A MINIMUM OF 6 HOURS LONG PT REMAINS ASYMPTOMATIC, SHE CAN BE RELEASED. IF PT BECOMES SYMPTOMATIC, GIVE SUPPORTIVE CARE UNTIL PT RETURNS TO BASELINE. ED Medical Decision Making - Lab Data Result diagrams: 12/19/19 17:59 12/19/19 17:59 Vital Signs 12/19/19 12/19/19 17:04 19:03 Temperature 99.2 F 98.9 F Pulse Rate 100 H 87 Respiratory 18 12 Rate Blood Pressure 143/101 Blood Pressure 135/87 [Left] O2 Sat by Pulse 100 99 Oximetry - EKG Data -: EKG Interpreted by [facility] EKG shows normal: sinus rhythm Rate: normal - EKG Data 12/19/19 21:12 Unremarkable EKG. Not a STEMI. Unchanged from prior. Intervals unremarkable. Critical care attestation.: If time is entered above; I have spent that time in minutes in the direct care of this critically ill patient, excluding procedure time. ED Disposition Clinical Impression: Medical clearance for psychiatric admission Disposition: DC-01 TO HOME OR SELFCARE Is pt being admited?: No Does the pt Need Aspirin: No Condition: Good Instructions: Suicide Prevention for Adults (ED) Additional Instructions: Follow-up instructions as per mental health team. Referrals: PRIMARY CARE, [Primary Care Provider] - 3-5 Days
[2019-12-19] MEDS: levETIRAcetam 500 MG TAB PO SCH (22:40)
[2019-12-19] MEDS: metFORMIN 500 MG TAB PO SCH (22:40)
[2019-12-20] MEDS: LORazepam 2 MG/ML VIAL IM PRN (08:44)
[2019-12-20] MEDS: levETIRAcetam 500 MG TAB PO SCH ×3 (08:46→23:19)
[2019-12-20] MEDS: metFORMIN 500 MG TAB PO SCH (08:51)
[2019-12-20] MEDS ORDERED: hydroCHLOROthiazide 25 MG TAB PO SCH (10:00)
--- NOTE | 2019-12-20 10:41 | Consultation ---
History of Present Illness - Reason for Consult Consult date: 12/20/19 Reason for consult: Psych eval - History of Present Psychiatric Illness Unable to assess patient. She has just been medicated for agitation and she is asleep. Medications and Allergies Allergies Allergy/AdvReac Type Severity Reaction Status Date / Time peanut Allergy Severe Anaphylaxis Verified 12/20/19 08:47 caffeine Allergy Shortness Verified 12/19/19 17:04 of Breath codeine Allergy Swelling Verified 12/19/19 17:04 Fish Containing Products Allergy Shortness Verified 12/19/19 17:04 of Breath grape Allergy Swelling Verified 12/19/19 17:04 ibuprofen Allergy Swelling Verified 12/19/19 17:04 latex Allergy Hives Verified 12/19/19 17:04 morphine Allergy Angioedema Verified 12/19/19 17:04 ondansetron [From Zofran] Allergy Hives Verified 12/19/19 17:04 pineapple Allergy Hives Verified 12/19/19 17:04 tomato Allergy Hives Verified 12/19/19 17:04 seafood Allergy Unknown Uncoded 09/12/19 10:14 Home Medications Medication Instructions Recorded Confirmed Last Taken Type OLANzapine [Zyprexa] 10 mg PO DAILY 12/19/19 12/19/19 Unknown History Prazosin HCl 2 mg PO HS 12/19/19 12/19/19 Unknown History Sertraline [Zoloft] 100 mg PO QDAY 12/19/19 12/19/19 Unknown History hydroCHLOROthiazide [HCTZ] 25 mg PO QDAY 12/19/19 12/19/19 Unknown History levETIRAcetam [Keppra TAB] 750 mg PO BID 12/19/19 12/19/19 Unknown History metFORMIN [Glucophage] 500 mg PO BID 12/19/19 12/19/19 Unknown History Active Meds: Active Medications Haloperidol Lactate (Haldol) 5 mg IM Q6HR PRN PRN Reason: Agitation Last Admin: 12/20/19 08:43 Dose: 5 mg Documented by: Hydrochlorothiazide (Hctz) 25 mg PO QDAY [facility] Levetiracetam (Keppra) 750 mg PO BID [facility] Last Admin: 12/20/19 08:46 Dose: 750 mg Documented by: Lorazepam (Ativan) 2 mg IM Q4HR PRN PRN Reason: Agitation Last Admin: 12/20/19 08:44 Dose: 2 mg Documented by: Metformin HCl (Glucophage) 500 mg PO BIDDIAB [facility] Last Admin: 12/20/19 08:51 Dose: Not Given Documented by: Mental Status Exam - Vital signs Last Vital Signs Temp 98.6 F 12/20/19 08:00 Pulse 86 12/20/19 08:00 Resp 18 12/20/19 08:00 BP 120/72 12/20/19 08:00 Pulse Ox 98 12/20/19 08:00 Results Result Diagrams: 12/19/19 17:59 12/19/19 17:59 Abnormal lab results 12/19/19 12/19/19 12/19/19 Range/Units 17:59 17:59 17:59 RDW 18.7 H (13.2-15.2) % Plt Count 445 H (140-440) K/mm3 Salicylates < 0.3 L (2.8-20.0) mg/dL Acetaminophen < 5.0 L (10.0-30.0) ug/mL Valproic Acid (50-100) ug/mL 12/19/19 Range/Units 17:59 RDW (13.2-15.2) % Plt Count (140-440) K/mm3 Salicylates (2.8-20.0) mg/dL Acetaminophen (10.0-30.0) ug/mL Valproic Acid < 2.8 L (50-100) ug/mL All other labs normal.
[2019-12-20] MEDS ORDERED: DOCUSATE SODIUM 100 MG CAP ONE (18:37)
[2019-12-20] MEDS ORDERED: DOCUSATE SODIUM 100 MG CAP PO ONE (18:39)
[2019-12-21] MEDS: LORazepam 2 MG/ML VIAL IM PRN (00:10)
[2019-12-21] MEDS: metFORMIN 500 MG TAB PO SCH (04:59)
[2019-12-21 07:35] VITALS: BP 131/59
--- NOTE | 2019-12-21 08:12 | Consultation ---
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 Psychiatry consulted to evaluate patient and recommend disposition. Per ED Provider's note: She presents to the ER today with a primary complaint of suicidal ideations. She reports that she was discharged earlier on today from a psychiatric facility, [place]. She reports that while she was at the facility, she was insistent to the health and social care teacher that she was still feeling suicidal. She then informs me that the psychiatrist at the facility told her that if she was still feeling suicidal, she should present to an emergency room, to "get cleared, and they could take me back." She states that after discharge, she began to feel more suicidal, and she alleges that she intentionally overdosed on her Minipress. She does not know how many tablets she took, she does not know the dose of her Minipress, she does not know if she took additional medications, and she does not know the exact time of ingestion, although she states that it was approximately 2 hours prior to arrival. Upon review of her medical records, it appears that current prescriptions include olanzapine, 10 mg daily, prazosin, 2 mg at bedtime, Zoloft, 100 mg daily, Keppra, 750 mg twice daily, metformin, 500 mg twice daily, and HCTZ, 25 mg daily. Patient seen by me this morning. She is alert, fully oriented, calm and pleasant. She endorses chronic auditory hallucinations and suicidal thoughts. She denies suicidal plans or intent at the moment and she feels safe being discharged home. She indicates that she has enough supply of her medications with refills and does not require new prescriptions. She denies side effects to her medications, denies homicidal thoughts/paranoia. PAST PSYCHIATRIC HISTORY: Diagnoses: conversion disorder, schizoaffective disorder, borderline personality disorder Suicide attempts or Self-harm behavior: Yes Prior psychiatric hospitalizations: Yes, multiple Substance Abuse history: Patient denies PAST MEDICAL HISTORY: DM, HTN Family Psychiatric History None reported or documented SOCIAL HISTORY Marital Status: Single Living Arrangements: with sister Employment Status: disabled Access to guns/weapons: Patient denies Education: College History of Abuse: Patient denies Legal History: Patient denies ROS: Constitutional: Negative for weight loss ENT: Negative for stridor Respiratory: Negative for cough or hemoptysis All other systems reviewed and are negative MENTAL STATUS General Appearance and Behavior: age appropriate, good eye contact, cooperative with questioning and polite Cooperation: Cooperative Psychomotor Behavior: within normal limits Mood: OK Affect and affective range: Congruent with stated mood Thought Process: Fluent/Logical and Goal-directed Thought Content: Chronic AH Speech: Normal volume and Regular rate and rhythm Intellectual Functioning Average Suicidal Ideation: Chronic SI, no plan/intent Homicidal Ideation: Denies HI Impulse Control: intact Insight and Judgment: normal insight and judgment Memory: Normal Attention: Normal Orientation: alert and oriented Diagnoses: Borderline personality disorder History of conversion disorder and schizoaffective disorder RECOMMENDATIONS MEDICATIONS: No medication adjustment recommended PSYCHOTHERAPY: Supportive psychotherapy provided MEDICAL: Per primary team DIRECTOR OF BUSINESS SYSTEMS: No DISPOSITION: Per primary team, no indication for acute inpatient psychiatric hospitalization at this time LEGAL STATUS: 1013 rescinded FOLLOW-UP: Will sign off Medications and Allergies Allergies Allergy/AdvReac Type Severity Reaction Status Date / Time peanut Allergy Severe Anaphylaxis Verified 12/20/19 08:47 caffeine Allergy Shortness Verified 12/19/19 17:04 of Breath codeine Allergy Swelling Verified 12/19/19 17:04 Fish Containing Products Allergy Shortness Verified 12/19/19 17:04 of Breath grape Allergy Swelling Verified 12/19/19 17:04 ibuprofen Allergy Swelling Verified 12/19/19 17:04 latex Allergy Hives Verified 12/19/19 17:04 morphine Allergy Angioedema Verified 12/19/19 17:04 ondansetron [From Zofran] Allergy Hives Verified 12/19/19 17:04 pineapple Allergy Hives Verified 12/19/19 17:04 tomato Allergy Hives Verified 12/19/19 17:04 seafood Allergy Unknown Uncoded 09/12/19 10:14 Home Medications Medication Instructions Recorded Confirmed Last Taken Type OLANzapine [Zyprexa] 10 mg PO DAILY 12/19/19 12/19/19 Unknown History Prazosin HCl 2 mg PO HS 12/19/19 12/19/19 Unknown History Sertraline [Zoloft] 100 mg PO QDAY 12/19/19 12/19/19 Unknown History hydroCHLOROthiazide [HCTZ] 25 mg PO QDAY 12/19/19 12/19/19 Unknown History levETIRAcetam [Keppra TAB] 750 mg PO BID 12/19/19 12/19/19 Unknown History metFORMIN [Glucophage] 500 mg PO BID 12/19/19 12/19/19 Unknown History Active Meds: Active Medications Haloperidol Lactate (Haldol) 5 mg IM Q6HR PRN PRN Reason: Agitation Last Admin: 12/20/19 08:43 Dose: 5 mg Documented by: Hydrochlorothiazide (Hctz) 25 mg PO QDAY [facility] Last Admin: 12/20/19 17:36 Dose: 25 mg Documented by: Levetiracetam (Keppra) 750 mg PO BID [facility] Last Admin: 12/20/19 23:19 Dose: 750 mg Documented by: Lorazepam (Ativan) 2 mg IM Q4HR PRN PRN Reason: Agitation Last Admin: 12/21/19 00:10 Dose: 2 mg Documented by: Metformin HCl (Glucophage) 500 mg PO BIDDIAB [facility] Last Admin: 12/21/19 04:59 Dose: Not Given Documented by: Mental Status Exam - Vital signs Last Vital Signs Temp 98.5 F 12/21/19 07:34 Pulse 89 12/21/19 07:34 Resp 18 12/21/19 07:34 BP 131/59 12/21/19 07:34 Pulse Ox 96 12/21/19 07:34 Results Result Diagrams: 12/19/19 17:59 12/19/19 17:59 All other labs normal.
== END 2019-12-21 09:18 | disposition home or self-care (01) ==
LOC: ED 17:02 → EEVIPCON 17:02 → ED 12-21 09:18
DX: R45.851 Suicidal ideations (principal); I10 Essential (primary) hypertension; D57.1 Sickle-cell disease without crisis; R56.9 Unspecified convulsions; F31.9 Bipolar disorder, unspecified; Z04.6 Encounter for general psychiatric examination, requested by authority; Z79.84 Long term (current) use of oral hypoglycemic drugs; Z79.899 Other long term (current) drug therapy; Z91.010 Allergy to peanuts; Z91.013 Allergy to seafood; Z91.018 Allergy to other foods
CPT/HCPCS: 36415; 80048; 80164; 80307; 81001; 81025; 82550; 82962; 83735; 85025; 93005; 93010; 96372; 99285; J1630; J2060; 80320; G0480

== ENCOUNTER 2020-07-27 23:35 | Emergency (ER) | payer SELFPAY ==
--- NOTE | 2020-07-28 03:13 | Emergency Department Report ---
HPI - General Chief Complaint: Psych Time Seen by Provider: 07/28/20 02:56 - HPI HPI: This is a 30-year-old female presents to the emergency department with complaint of depression and suicidal ideations. Patient says that this month is the 1 year anniversary of her mother's and "my mentor the day before yesterday." Patient says that she would have a plan to shoot herself and that she does have access to a gun. She has a psychiatric history of bipolar disorder and schizophrenia. She denies any homicidal ideations or any current hallucinations. She has the past medical history of hypertension, seizures, sickle cell disease. Patient says that she has been compliant with her home medications. ED Past Medical Hx - Past Medical History Previous Medical History?: Yes Hx Hypertension: Yes Hx Sickle Cell Disease: Yes Hx Seizures: Yes Hx Psychiatric Treatment: Yes (bipolar schiz) Additional medical history: 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 - Surgical History Past Surgical History?: Yes Hx Coronary Stent: No Hx Open Heart Surgery: No Hx Pacemaker: No Hx Internal Defibrillator: No Hx Cholecystectomy: No Hx Appendectomy: No Hx Breast Surgery: No Additional Surgical History: Lt foot - Social History Smoking Status: Never Smoker Substance Use Type: None - Medications Home Medications: Home Medications Medication Instructions Recorded Confirmed Last Taken Type Prazosin HCl 2 mg PO HS 12/19/19 07/28/20 Unknown History Sertraline [Zoloft] 100 mg PO QDAY 12/19/19 07/28/20 Unknown History hydroCHLOROthiazide [HCTZ] 25 mg PO QDAY 12/19/19 07/28/20 Unknown History levETIRAcetam [Keppra TAB] 750 mg PO BID 12/19/19 07/28/20 Unknown History metFORMIN [Glucophage] 500 mg PO BID 12/19/19 07/28/20 Unknown History Folic Acid 1 mg PO DAILY 07/28/20 07/28/20 Unknown History Phenytoin [Dilantin] 300 mg PO BID 07/28/20 07/28/20 Unknown History ED Review of Systems ROS: Stated complaint: MH EVAL/SUICIDAL Other details as noted in HPI Comment: All other systems reviewed and negative Constitutional: denies: chills, fever Respiratory: denies: shortness of breath Cardiovascular: denies: chest pain Gastrointestinal: denies: abdominal pain Musculoskeletal: denies: back pain Neurological: denies: headache Psychiatric: depression, suicidal thoughts. denies: auditory hallucinations, visual hallucinations Physical Exam - Physical Exam Vital Signs: Vital Signs 07/28/20 00:13 Temperature 98.7 F Pulse Rate 96 H Respiratory 17 Rate Blood Pressure 142/68 O2 Sat by Pulse 98 Oximetry Physical Exam: GENERAL: The patient is well-developed well-nourished. HENT: Normocephalic. Atraumatic. Patient has moist mucous membranes. EYES: Extraocular motions are intact. NECK: Supple. Trachea is midline. CHEST/LUNGS: Clear to auscultation. There is no respiratory distress noted. HEART/CARDIOVASCULAR: Regular. There is no tachycardia. There is no murmur. ABDOMEN: Abdomen is soft, nontender. Patient has normal bowel sounds. SKIN: Skin is warm and dry. NEURO: The patient is awake, alert, and oriented. The patient is cooperative. Normal speech. MUSCULOSKELETAL: There is no tenderness or deformity. There is no limitation r jorge of motion. ED Course Vital Signs 07/28/20 00:13 Temperature 98.7 F Pulse Rate 96 H Respiratory 17 Rate Blood Pressure 142/68 O2 Sat by Pulse 98 Oximetry ED Medical Decision Making - Lab Data Result diagrams: 07/28/20 03:31 07/28/20 03:31 - Medical Decision Making This patient presents to the emergency department with a complaint of suicidal ideations with the plan to shoot herself and allegedly has access to a gun. For this reason she has been made a 1013. Labs have been unremarkable including CBC, metabolic panel, blood alcohol level, urinalysis. Vital signs have been reassuring thus far throughout her ED course. Patient is medically cleared for psychiatric placement. Critical Care Time: No Critical care attestation.: If time is entered above; I have spent that time in minutes in the direct care of this critically ill patient, excluding procedure time. ED Disposition Clinical Impression: Suicidal ideations MDD (major depressive disorder) Qualifiers: Major depression recurrence: unspecified whether recurrent Major depression episode severity: unspecified Disposition: DC/TX-65 PSY HOSP/PSY UNIT Is pt being admited?: No Condition: Stable Time of Disposition: 05:30
[2020-07-28 03:26] LABS: Bilirubin,Urine NEG (Negative); Blood,Urine NEG (Negative); Color,Urine Amber (Yellow); Mucus,Urine 3+ /HPF
[2020-07-28 03:32] LABS: Amphetamine Screen,Urine PRESUMPTIVE NEGATIVE; Benzodiazepines Screen,Urine PRESUMPTIVE NEGATIVE; Cannabinoid Screen,Urine PRESUMPTIVE NEGATIVE; Cocaine Screen,Urine PRESUMPTIVE NEGATIVE; Methadone Screen,Urine PRESUMPTIVE NEGATIVE; Opiate Screen,Urine PRESUMPTIVE NEGATIVE
[2020-07-28 04:07] LABS: Basophils % (Auto) 0.3 % (0.0-1.8); Eosinophils # (Auto) 0.1 K/mm3 (0.0-0.4); Eosinophils % (Auto) 0.6 % (0.0-4.3); Hematocrit 34.7 % (30.3-42.9); Hemoglobin 11.5 gm/dl (10.1-14.3); Lymphocytes # (Auto) 2.4 K/mm3 (1.2-5.4); Lymphocytes % (Auto) 24.8 % (13.4-35.0); Mean Corpuscular HGB Conc 33 % (30-34); Mean Corpuscular Volume 90 fl (79-97); Monocytes # (Auto) 0.4 K/mm3 (0.0-0.8); Monocytes % (Auto) 4.7 % (0.0-7.3); Platelet Count 298 K/mm3 (140-440); Red Blood Count 3.85 M/mm3 (3.65-5.03); Red Cell Distribution Width 15.1 % (13.2-15.2)
[2020-07-28 04:29] LABS: Blood Urea Nitrogen 6 mg/dL (7-17); Calcium 9.3 mg/dL (8.4-10.2); Hemolysis Index 8
[2020-07-28 04:39] LABS: BUN/Creatinine Ratio 10
[2020-07-28] MEDS ORDERED: metFORMIN 500 MG TAB ONE (10:00)
[2020-07-28] MEDS ORDERED: NON-FORMULARY EACH (Levetiracetam [Keppra Tab] 750 MG) PO SCH (10:00)
[2020-07-28] MEDS: metFORMIN 500 MG TAB PO SCH ×2 (10:04→18:19)
[2020-07-28] MEDS: hydroCHLOROthiazide 25 MG TAB PO SCH (10:04)
[2020-07-28] MEDS: FOLIC ACID 1 MG TAB PO SCH (10:05)
[2020-07-28] MEDS: ALBUTEROL 2.5 MG/3 ML NEBU IH PRN (10:06)
[2020-07-28] MEDS: levETIRAcetam 500 MG/5 ML ORAL LIQD PO SCH ×2 (10:59→21:39)
[2020-07-28] MEDS ORDERED: ACETAMINOPHEN 500 MG TAB PO PRN (14:26)
--- NOTE | 2020-07-28 14:28 | Event Note ---
Date: 07/28/20 The patient was evaluated in the emergency department for symptoms described in the history of present illness. He/she was evaluated in the context of the global COVID-19 pandemic, which necessitated consideration that the patient might be at risk for infection with the virus that causes COVID-19. Institutional protocols and algorithms that pertain to the evaluation of patients at risk for COVID-19 are in a state of rapid change based on information released by regulatory bodies including the CDC and federal and state organizations. These policies and algorithms were followed during the patient's care in the emergency department. Please note that these policies, procedures and recommendations changed on a rapid basis. Patient complained of epigastric pain. The patient denies DVT and pulmonary embolism risk factors. She states that she is not . On my examination, with distraction there is no abdominal tenderness, rebound or guarding. She is also not currently tachypneic or hypoxic. She is somewhat anxious, and therefore minimally tachycardic. Check EKG, x-ray the chest, treat symptoms, test negative, repeat Accu-Chek. Do not see indication for further diagnostic work-up and evaluation, except as noted. EKG today shows a sinus rhythm, 82 bpm, normal axis, normal intervals, QTC 448 ms, motion artifact, borderline poor R wave progression, however, the EKG is unchanged from prior EKG from December 2019 repeat Accu-Chek 110 as per verbal report from nursing team. Vital Signs 07/28/20 07/28/20 07/28/20 00:13 09:33 13:11 Temperature 98.7 F 98.1 F Pulse Rate 96 H 89 109 H Respiratory 17 18 20 Rate Blood Pressure 142/68 Blood Pressure 131/82 148/98 [Left] O2 Sat by Pulse 98 99 Oximetry Lab Results 07/28/20 07/28/20 07/28/20 Range/Units 03:14 03:14 03:31 WBC 9.5 (4.5-11.0) K/mm3 RBC 3.85 (3.65-5.03) M/mm3 Hgb 11.5 (10.1-14.3) gm/dl Hct 34.7 (30.3-42.9) % MCV 90 (79-97) fl MCH 30 (28-32) pg MCHC 33 (30-34) % RDW 15.1 (13.2-15.2) % Plt Count 298 (140-440) K/mm3 Lymph % (Auto) 24.8 (13.4-35.0) % [place] % (Auto) 4.7 (0.0-7.3) % Eos % (Auto) 0.6 (0.0-4.3) % Baso % (Auto) 0.3 (0.0-1.8) % Lymph # (Auto) 2.4 (1.2-5.4) K/mm3 [place] # (Auto) 0.4 (0.0-0.8) K/mm3 Eos # (Auto) 0.1 (0.0-0.4) K/mm3 Baso # (Auto) 0.0 (0.0-0.1) K/mm3 Seg Neutrophils % 69.6 (40.0-70.0) % Seg Neutrophils # 6.6 (1.8-7.7) K/mm3 Sodium (137-145) mmol/L Potassium (3.6-5.0) mmol/L Chloride (98-107) mmol/L Carbon Dioxide (22-30) mmol/L Anion Gap mmol/L BUN (7-17) mg/dL Creatinine (0.6-1.2) mg/dL Estimated GFR ml/min BUN/Creatinine Ratio % Glucose (65-100) mg/dL POC Glucose (70-105) mg/dL Calcium (8.4-10.2) mg/dL HCG, Qual (Negative) Urine Color [place] (Yellow) Urine Turbidity Clear (Clear) Urine pH 5.0 (5.0-7.0) Ur Specific [place] 1.032 H (1.003-1.030) Urine Protein 30 mg/dl (Negative) mg/dL Urine Glucose (UA) Neg (Negative) mg/dL Urine Ketones 20 (Negative) mg/dL Urine Blood Neg (Negative) Urine Nitrite Neg (Negative) Urine Bilirubin Neg (Negative) Urine Urobilinogen 2.0 (<2.0) mg/dL Ur Leukocyte Esterase Mod (Negative) Urine WBC (Auto) 2.0 (0.0-6.0) /HPF Urine RBC (Auto) 9.0 (0.0-6.0) /HPF U Epithel Cells (Auto) 9.0 (0-13.0) /HPF Urine Mucus 3+ /HPF Urine Opiates Screen Presumptive negative Urine Methadone Screen Presumptive negative Ur Barbiturates Screen Presumptive negative Phenytoin (10.0-20.0) ug/mL Ur Phencyclidine Scrn Presumptive negative Ur Amphetamines Screen Presumptive negative U Benzodiazepines Scrn Presumptive negative Urine Cocaine Screen Presumptive negative U Marijuana (THC) Screen Presumptive negative Drugs of Abuse Note Disclamer Plasma/Serum Alcohol (0-0.07) % 07/28/20 07/28/20 07/28/20 Range/Units 03:31 03:31 03:31 WBC (4.5-11.0) K/mm3 RBC (3.65-5.03) M/mm3 Hgb (10.1-14.3) gm/dl Hct (30.3-42.9) % MCV (79-97) fl MCH (28-32) pg MCHC (30-34) % RDW (13.2-15.2) % Plt Count (140-440) K/mm3 Lymph % (Auto) (13.4-35.0) % [place] % (Auto) (0.0-7.3) % Eos % (Auto) (0.0-4.3) % Baso % (Auto) (0.0-1.8) % Lymph # (Auto) (1.2-5.4) K/mm3 [place] # (Auto) (0.0-0.8) K/mm3 Eos # (Auto) (0.0-0.4) K/mm3 Baso # (Auto) (0.0-0.1) K/mm3 Seg Neutrophils % (40.0-70.0) % Seg Neutrophils # (1.8-7.7) K/mm3 Sodium 142 (137-145) mmol/L Potassium 3.7 (3.6-5.0) mmol/L Chloride 108.7 H (98-107) mmol/L Carbon Dioxide 20 L (22-30) mmol/L Anion Gap 17 mmol/L BUN 6 L (7-17) mg/dL Creatinine 0.6 (0.6-1.2) mg/dL Estimated GFR > 60 ml/min BUN/Creatinine Ratio 10 % Glucose 82 (65-100) mg/dL POC Glucose (70-105) mg/dL Calcium 9.3 (8.4-10.2) mg/dL HCG, Qual (Negative) Urine Color (Yellow) Urine Turbidity (Clear) Urine pH (5.0-7.0) Ur Specific [place] (1.003-1.030) Urine Protein (Negative) mg/dL Urine Glucose (UA) (Negative) mg/dL Urine Ketones (Negative) mg/dL Urine Blood (Negative) Urine Nitrite (Negative) Urine Bilirubin (Negative) Urine Urobilinogen (<2.0) mg/dL Ur Leukocyte Esterase (Negative) Urine WBC (Auto) (0.0-6.0) /HPF Urine RBC (Auto) (0.0-6.0) /HPF U Epithel Cells (Auto) (0-13.0) /HPF Urine Mucus /HPF Urine Opiates Screen Urine Methadone Screen Ur Barbiturates Screen Phenytoin 0.8 L (10.0-20.0) ug/mL Ur Phencyclidine Scrn Ur Amphetamines Screen U Benzodiazepines Scrn Urine Cocaine Screen U Marijuana (THC) Screen Drugs of Abuse Note Plasma/Serum Alcohol < 0.01 (0-0.07) % 07/28/20 07/28/20 Range/Units 09:57 13:56 WBC (4.5-11.0) K/mm3 RBC (3.65-5.03) M/mm3 Hgb (10.1-14.3) gm/dl Hct (30.3-42.9) % MCV (79-97) fl MCH (28-32) pg MCHC (30-34) % RDW (13.2-15.2) % Plt Count (140-440) K/mm3 Lymph % (Auto) (13.4-35.0) % [place] % (Auto) (0.0-7.3) % Eos % (Auto) (0.0-4.3) % Baso % (Auto) (0.0-1.8) % Lymph # (Auto) (1.2-5.4) K/mm3 [place] # (Auto) (0.0-0.8) K/mm3 Eos # (Auto) (0.0-0.4) K/mm3 Baso # (Auto) (0.0-0.1) K/mm3 Seg Neutrophils % (40.0-70.0) % Seg Neutrophils # (1.8-7.7) K/mm3 Sodium (137-145) mmol/L Potassium (3.6-5.0) mmol/L Chloride (98-107) mmol/L Carbon Dioxide (22-30) mmol/L Anion Gap mmol/L BUN (7-17) mg/dL Creatinine (0.6-1.2) mg/dL Estimated GFR ml/min BUN/Creatinine Ratio % Glucose (65-100) mg/dL POC Glucose 76 (70-105) mg/dL Calcium (8.4-10.2) mg/dL HCG, Qual Negative (Negative) Urine Color (Yellow) Urine Turbidity (Clear) Urine pH (5.0-7.0) Ur Specific [place] (1.003-1.030) Urine Protein (Negative) mg/dL Urine Glucose (UA) (Negative) mg/dL Urine Ketones (Negative) mg/dL Urine Blood (Negative) Urine Nitrite (Negative) Urine Bilirubin (Negative) Urine Urobilinogen (<2.0) mg/dL Ur Leukocyte Esterase (Negative) Urine WBC (Auto) (0.0-6.0) /HPF Urine RBC (Auto) (0.0-6.0) /HPF U Epithel Cells (Auto) (0-13.0) /HPF Urine Mucus /HPF Urine Opiates Screen Urine Methadone Screen Ur Barbiturates Screen Phenytoin (10.0-20.0) ug/mL Ur Phencyclidine Scrn Ur Amphetamines Screen U Benzodiazepines Scrn Urine Cocaine Screen U Marijuana (THC) Screen Drugs of Abuse Note Plasma/Serum Alcohol (0-0.07) % Accu-Chek improved. X-ray of the chest negative for acute findings.
[2020-07-28] MEDS: FAMOTIDINE 20 MG TAB PO SCH ×2 (15:12→21:39)
--- NOTE | 2020-07-28 15:41 | XRay Report ---
CHEST 1 VIEW 07/28/2020 3:25 PM INDICATION / CLINICAL INFORMATION: chest pain. COMPARISON: 05/06/2020. FINDINGS: SUPPORT DEVICES: None. HEART / MEDIASTINUM: No significant abnormality. LUNGS / PLEURA: No significant pulmonary or pleural abnormality. No pneumothorax. ADDITIONAL FINDINGS: No significant additional findings. IMPRESSION: Unremarkable chest. Signer Name: Jean Weeks MD Signed: 07/28/2020 3:36 PM Workstation Name: [id number]
[2020-07-28] MEDS ORDERED: LORazepam 2 MG/ML VIAL IM ONE (20:41)
[2020-07-29] MEDS: metFORMIN 500 MG TAB PO SCH ×2 (08:28→17:56)
[2020-07-29] MEDS: FOLIC ACID 1 MG TAB PO SCH (10:15)
[2020-07-29] MEDS: levETIRAcetam 500 MG/5 ML ORAL LIQD PO SCH ×2 (10:15→23:28)
[2020-07-29] MEDS: FAMOTIDINE 20 MG TAB PO SCH ×2 (10:15→23:29)
[2020-07-29] MEDS: hydroCHLOROthiazide 25 MG TAB PO SCH (10:16)
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
[2020-07-29] MEDS: ALBUTEROL 2.5 MG/3 ML NEBU IH PRN (10:31)
[2020-07-29] MEDS: DIVALPROEX DR 125 MG TAB PO SCH ×2 (11:20→23:29)
[2020-07-29] MEDS: SERTRALINE 25 MG TAB PO SCH (11:20)
[2020-07-29] MEDS: risperiDONE 0.25 MG TAB PO SCH ×2 (11:20→23:30)
[2020-07-29] MEDS: traZODone 50 MG TAB PO SCH (23:29)
[2020-07-30] MEDS: ALBUTEROL 2.5 MG/3 ML NEBU IH PRN (00:10)
[2020-07-30] MEDS ORDERED: ZIPRASIDONE MESYLATE 20 MG VIAL IM ONE (01:12)
[2020-07-30] MEDS ORDERED: WATER FOR INJ Sterile (PF) 10 ML ONE (01:13)
--- NOTE | 2020-07-30 09:30 | Progress Note ---
Subjective - Reason for Consult Consult date: 07/30/20 Reason for consult: SI/Hallucinations/Depression - Chief Complaint Chief complaint: During my interview with the patient today, she is sitting on side of the cot. She is sitting with her head down. She makes poor eye contact. She verbalizes feeling "down." The patient says she's still suicidal and "seeing the lady with holes in her face." REVIEW OF SYSTEMS Constitutional: Negative for weight loss ENT: Negative for stridor Respiratory: Negative for cough or hemoptysis All other systems reviewed and are negative MENTAL STATUS EXAMINATION General Appearance and Behavior: Age appropriate, fair hygiene, wearing appropriate clothes, pooreye contact, cooperative with questioning and polite Cooperation: Participating/engaged Psychomotor Behavior: unremarkable and within normal limits Mood: "down" Affect and affective range: Flat Thought Process: goal directed Thought Content: suicidal thoughts, hallucinations Speech: Normal volume, Regular rate and rhythm Intellectual Functioning: Average Suicidal Ideation: Suicidal Homicidal Ideation: Denies HI Hallucinations: Visual Delusions: None elicited Impulse Control: Unimpaired Insight and Judgment: Impaired Memory: Normal Attention: Limited Orientation: Alert, oriented Assessment and Plan (1) Bipolar 1 disorder, depressed Current Visit: Yes Status: Acute (2) Adjustment Disorder with Depressed Mood Current Visit: Yes Status: Acute RECOMMENDATIONS MEDICATIONS: Increased Risperidone 0.5mg po BID Increased Depakote DR 250mg po BID Risks, benefits and alternatives of medications discussed with the patient, questions answered and consent obtained from patient. PSYCHOTHERAPY: Supportive psychotherapy provided MEDICAL: Per primary team DELIRIUM PRECAUTIONS: Please re-orient patient frequently, keep lights on during the day, and minimize benzodiazepines and opiates as these medications could worsen patient's confusion. ORACLE HRMS DEVELOPER: Per Medical Team DISPOSITION: Recommends acute inpatient psychiatric hospitalization at this time LEGAL STATUS: 1013 FOLLOW-UP: Will follow Thank you for the consult. Please contact with any questions and/or concerns. Mental Status Exam - Vital signs Last Vital Signs Temp 98.7 F 07/30/20 07:42 Pulse 97 H 07/30/20 07:42 Resp 18 07/30/20 07:42 BP 131/92 07/30/20 07:42 Pulse Ox 100 07/30/20 07:42
[2020-07-30] MEDS: DIVALPROEX DR 250 MG TAB PO SCH ×2 (10:16→22:19)
[2020-07-30] MEDS: FAMOTIDINE 20 MG TAB PO SCH ×2 (10:16→22:23)
[2020-07-30] MEDS: FOLIC ACID 1 MG TAB PO SCH (10:16)
[2020-07-30] MEDS: hydroCHLOROthiazide 25 MG TAB PO SCH (10:16)
[2020-07-30] MEDS: risperiDONE 0.25 MG TAB PO SCH ×2 (10:16→22:20)
[2020-07-30] MEDS: SERTRALINE 25 MG TAB PO SCH (10:17)
[2020-07-30] MEDS: metFORMIN 500 MG TAB PO SCH ×2 (10:17→18:53)
[2020-07-30] MEDS: levETIRAcetam 500 MG/5 ML ORAL LIQD PO SCH ×2 (10:17→22:21)
[2020-07-30] MEDS: traZODone 50 MG TAB PO SCH (22:22)
[2020-07-31] MEDS: metFORMIN 500 MG TAB PO SCH ×2 (08:44→19:26)
--- NOTE | 2020-07-31 10:44 | Progress Note ---
Subjective - Reason for Consult Consult date: 07/31/20 Reason for consult: MHE Requesting physician: JOJO NAVARRO - Chief Complaint Chief complaint: Psych Progress Patient seen this AM, reports she is still suicidal because her moms anniversary was a day ago, and she is troubled by, reports thoughts of self harm and depressed mood. REVIEW OF SYSTEMS Constitutional: Negative for weight loss ENT: Negative for stridor Respiratory: Negative for cough or hemoptysis All other systems reviewed and are negative MENTAL STATUS EXAMINATION General Appearance and Behavior: Age appropriate, fair hygiene, wearing appropriate clothes, pooreye contact, cooperative with questioning and polite Cooperation: Participating/engaged Psychomotor Behavior: unremarkable and within normal limits Mood: "down" Affect and affective range: Flat Thought Process: goal directed Thought Content: suicidal thoughts, hallucinations Speech: Normal volume, Regular rate and rhythm Intellectual Functioning: Average Suicidal Ideation: Suicidal Homicidal Ideation: Denies HI Hallucinations: Visual Delusions: None elicited Impulse Control: Unimpaired Insight and Judgment: Impaired Memory: Normal Attention: Limited Orientation: Alert, oriented Assessment and Plan (1) Bipolar 1 disorder, depressed Current Visit: Yes Status: Acute (2) Adjustment Disorder with Depressed Mood Current Visit: Yes Status: Acute RECOMMENDATIONS MEDICATIONS: Increased Risperidone 1mg po BID Increased Depakote DR 500mg po BID Risks, benefits and alternatives of medications discussed with the patient, questions answered and consent obtained from patient. PSYCHOTHERAPY: Supportive psychotherapy provided MEDICAL: Per primary team DELIRIUM PRECAUTIONS: Please re-orient patient frequently, keep lights on during the day, and minimize benzodiazepines and opiates as these medications could worsen patient's confusion. WATER PROJECT ENGINEER: Per Medical Team DISPOSITION: Recommends acute inpatient psychiatric hospitalization at this time LEGAL STATUS: 1013 FOLLOW-UP: Will follow Thank you for the consult. Please contact with any questions and/or concerns. Mental Status Exam - Vital signs Last Vital Signs Temp 98.2 F 07/31/20 02:20 Pulse 69 07/31/20 02:20 Resp 16 07/31/20 02:20 BP 91/43 07/31/20 02:20 Pulse Ox 95 07/31/20 02:20
[2020-07-31] MEDS: FAMOTIDINE 20 MG TAB PO SCH ×2 (11:52→22:39)
[2020-07-31] MEDS: levETIRAcetam 500 MG/5 ML ORAL LIQD PO SCH ×2 (11:52→22:42)
[2020-07-31] MEDS: DIVALPROEX DR 250 MG TAB PO SCH ×3 (11:52→22:39)
[2020-07-31] MEDS: risperiDONE 0.25 MG TAB PO SCH ×3 (11:52→22:40)
[2020-07-31] MEDS: hydroCHLOROthiazide 25 MG TAB PO SCH (11:53)
[2020-07-31] MEDS: FOLIC ACID 1 MG TAB PO SCH (11:53)
[2020-07-31] MEDS: SERTRALINE 25 MG TAB PO SCH (11:53)
[2020-07-31] MEDS: traZODone 50 MG TAB PO SCH (22:39)
[2020-08-01] MEDS: metFORMIN 500 MG TAB PO SCH ×2 (08:28→18:05)
[2020-08-01] MEDS: risperiDONE 0.25 MG TAB PO SCH ×2 (10:07→22:07)
[2020-08-01] MEDS: DIVALPROEX DR 250 MG TAB PO SCH ×2 (10:08→22:04)
[2020-08-01] MEDS: FAMOTIDINE 20 MG TAB PO SCH ×2 (10:08→22:07)
[2020-08-01] MEDS: SERTRALINE 25 MG TAB PO SCH (10:08)
[2020-08-01] MEDS: hydroCHLOROthiazide 25 MG TAB PO SCH (10:08)
[2020-08-01] MEDS: predniSONE 20 MG TAB PO SCH (10:09)
[2020-08-01] MEDS: FOLIC ACID 1 MG TAB PO SCH (10:10)
[2020-08-01] MEDS: levETIRAcetam 500 MG/5 ML ORAL LIQD PO SCH ×2 (10:10→22:03)
--- NOTE | 2020-08-01 11:16 | Progress Note ---
Subjective - Reason for Consult Consult date: 08/01/20 Reason for consult: MHE Requesting physician: JOJO NAVARRO - Chief Complaint Chief complaint: Psych Progress Patient seen this AM, still endorses SI and hearing voices to hurt self REVIEW OF SYSTEMS Constitutional: Negative for weight loss ENT: Negative for stridor Respiratory: Negative for cough or hemoptysis All other systems reviewed and are negative MENTAL STATUS EXAMINATION General Appearance and Behavior: Age appropriate, fair hygiene, wearing appropriate clothes, pooreye contact, cooperative with questioning and polite Cooperation: Participating/engaged Psychomotor Behavior: unremarkable and within normal limits Mood: "down" Affect and affective range: Flat Thought Process: goal directed Thought Content: suicidal thoughts, hallucinations Speech: Normal volume, Regular rate and rhythm Intellectual Functioning: Average Suicidal Ideation: Suicidal Homicidal Ideation: Denies HI Hallucinations: Visual Delusions: None elicited Impulse Control: Unimpaired Insight and Judgment: Impaired Memory: Normal Attention: Limited Orientation: Alert, oriented Assessment and Plan (1) Bipolar 1 disorder, depressed Current Visit: Yes Status: Acute (2) Adjustment Disorder with Depressed Mood Current Visit: Yes Status: Acute RECOMMENDATIONS MEDICATIONS: Increased Risperidone 1mg po BID Increased Depakote DR 500mg po BID Risks, benefits and alternatives of medications discussed with the patient, questions answered and consent obtained from patient. PSYCHOTHERAPY: Supportive psychotherapy provided MEDICAL: Per primary team DELIRIUM PRECAUTIONS: Please re-orient patient frequently, keep lights on during the day, and minimize benzodiazepines and opiates as these medications could worsen patient's confusion. INTERNAL MEDICINE SPECIALIST: Per Medical Team DISPOSITION: Recommends acute inpatient psychiatric hospitalization at this time LEGAL STATUS: 1013 FOLLOW-UP: Will follow Thank you for the consult. Please contact with any questions and/or concerns. Mental Status Exam - Vital signs Last Vital Signs Temp 97.6 F 08/01/20 08:20 Pulse 91 H 08/01/20 08:20 Resp 20 08/01/20 08:20 BP 122/76 08/01/20 08:20 Pulse Ox 100 08/01/20 08:20
[2020-08-01] MEDS: traZODone 50 MG TAB PO SCH (22:07)
--- NOTE | 2020-08-02 09:51 | Progress Note ---
Subjective - Reason for Consult Consult date: 08/02/20 Reason for consult: MHE Requesting physician: NATHEN MACKAY - Chief Complaint Chief complaint: Psych Progress Patient seen this AM, describes her mood as so so, endorses persistent SI and hearing voices to hurt self REVIEW OF SYSTEMS Constitutional: Negative for weight loss ENT: Negative for stridor Respiratory: Negative for cough or hemoptysis All other systems reviewed and are negative MENTAL STATUS EXAMINATION General Appearance and Behavior: Age appropriate, fair hygiene, wearing appropriate clothes, pooreye contact, cooperative with questioning and polite Cooperation: Participating/engaged Psychomotor Behavior: unremarkable and within normal limits Mood: "down" Affect and affective range: Flat Thought Process: goal directed Thought Content: suicidal thoughts, hallucinations Speech: Normal volume, Regular rate and rhythm Intellectual Functioning: Average Suicidal Ideation: Suicidal Homicidal Ideation: Denies HI Hallucinations: Visual Delusions: None elicited Impulse Control: Unimpaired Insight and Judgment: Impaired Memory: Normal Attention: Limited Orientation: Alert, oriented Assessment and Plan (1) Bipolar 1 disorder, depressed Current Visit: Yes Status: Acute (2) Adjustment Disorder with Depressed Mood Current Visit: Yes Status: Acute RECOMMENDATIONS MEDICATIONS: Increased Risperidone 1mg po BID Increased Depakote DR 500mg po BID Risks, benefits and alternatives of medications discussed with the patient, questions answered and consent obtained from patient. PSYCHOTHERAPY: Supportive psychotherapy provided MEDICAL: Per primary team DELIRIUM PRECAUTIONS: Please re-orient patient frequently, keep lights on during the day, and minimize benzodiazepines and opiates as these medications could wo rsen patient's confusion. ELECTRIC RANGE SERVICER: Per Medical Team DISPOSITION: Recommends acute inpatient psychiatric hospitalization at this time LEGAL STATUS: 1013 FOLLOW-UP: Will follow Thank you for the consult. Please contact with any questions and/or concerns. Mental Status Exam - Vital signs Last Vital Signs Temp 98.3 F 08/02/20 09:12 Pulse 72 08/02/20 09:12 Resp 20 08/02/20 09:12 BP 109/58 08/02/20 09:12 Pulse Ox 100 08/02/20 09:12
[2020-08-02] MEDS: hydroCHLOROthiazide 25 MG TAB PO SCH (09:55)
[2020-08-02] MEDS: predniSONE 20 MG TAB PO SCH (09:55)
[2020-08-02] MEDS: DIVALPROEX DR 250 MG TAB PO SCH ×2 (09:55→22:02)
[2020-08-02] MEDS: risperiDONE 0.25 MG TAB PO SCH ×2 (09:56→22:02)
[2020-08-02] MEDS: metFORMIN 500 MG TAB PO SCH ×2 (09:57→19:00)
[2020-08-02] MEDS: FOLIC ACID 1 MG TAB PO SCH (09:57)
[2020-08-02] MEDS: SERTRALINE 25 MG TAB PO SCH (09:57)
[2020-08-02] MEDS: levETIRAcetam 500 MG/5 ML ORAL LIQD PO SCH ×2 (09:58→21:59)
[2020-08-02] MEDS: FAMOTIDINE 20 MG TAB PO SCH ×2 (09:58→22:01)
[2020-08-02] MEDS ORDERED: ZIPRASIDONE MESYLATE 20 MG VIAL IM ONE ×2 (19:01)
[2020-08-02] MEDS: traZODone 50 MG TAB PO SCH (22:02)
[2020-08-03] MEDS: metFORMIN 500 MG TAB PO SCH (07:43)
[2020-08-03 08:16] VITALS: BP 122/83
--- NOTE | 2020-08-03 10:46 | Progress Note ---
Subjective - Reason for Consult Consult date: 08/03/20 Reason for consult: MHE Requesting physician: JOJO NAVARRO - Chief Complaint Chief complaint: Psych Progress Patient seen this AM, today she reports feeling better, patient says she would like to go home with her current medications denies any acute suicidal ideation. REVIEW OF SYSTEMS Constitutional: Negative for weight loss ENT: Negative for stridor Respiratory: Negative for cough or hemoptysis All other systems reviewed and are negative MENTAL STATUS EXAMINATION General Appearance and Behavior: Age appropriate, fair hygiene, wearing appropriate clothes, pooreye contact, cooperative with questioning and polite Cooperation: Participating/engaged Psychomotor Behavior: unremarkable and within normal limits Mood: "down" Affect and affective range: Flat Thought Process: goal directed Thought Content: suicidal thoughts, hallucinations Speech: Normal volume, Regular rate and rhythm Intellectual Functioning: Average Suicidal Ideation: Denies Homicidal Ideation: Denies HI Hallucinations: No hallucinations Delusions: None elicited Impulse Control: Unimpaired Insight and Judgment: Impaired Memory: Normal Attention: Limited Orientation: Alert, oriented Assessment and Plan (1) Bipolar 1 disorder, depressed Current Visit: Yes Status: Acute (2) Adjustment Disorder with Depressed Mood Current Visit: Yes Status: Acute RECOMMENDATIONS MEDICATIONS: Increased Risperidone 1mg po BID Increased Depakote DR 500mg po BID Risks, benefits and alternatives of medications discussed with the patient, questions answered and consent obtained from patient. PSYCHOTHERAPY: Supportive psychotherapy provided MEDICAL: Per primary team DELIRIUM PRECAUTIONS: Please re-orient patient frequently, keep lights on during the day, and minimize benzodiazepines and opiates as these medications could worsen patient's confusion. SHERIFFS: Per Medical Team DISPOSITION: Do not Recommends acute inpatient psychiatric hospitalization at this time LEGAL STATUS: 1013 rescinded FOLLOW-UP: Will sign off Thank you for the consult. Please contact with any questions and/or concerns. Mental Status Exam - Vital signs Last Vital Signs Temp 98.9 F 08/03/20 08:15 Pulse 89 08/03/20 08:15 Resp 18 08/03/20 08:15 BP 122/83 08/03/20 08:15 Pulse Ox 96 08/03/20 08:15
[2020-08-03] MEDS: hydroCHLOROthiazide 25 MG TAB PO SCH (12:24)
[2020-08-03] MEDS: SERTRALINE 25 MG TAB PO SCH (12:25)
[2020-08-03] MEDS: risperiDONE 0.25 MG TAB PO SCH (12:25)
[2020-08-03] MEDS: FAMOTIDINE 20 MG TAB PO SCH (12:25)
[2020-08-03] MEDS: DIVALPROEX DR 250 MG TAB PO SCH (12:25)
[2020-08-03] MEDS: FOLIC ACID 1 MG TAB PO SCH (12:25)
[2020-08-03] MEDS: levETIRAcetam 500 MG/5 ML ORAL LIQD PO SCH (12:25)
[2020-08-03] MEDS: predniSONE 20 MG TAB PO SCH (12:26)
== END 2020-08-03 14:35 ==
LOC: EEVIPCON 23:35 → ED 23:35
DX: F25.0 Schizoaffective disorder, bipolar type (principal); R45.851 Suicidal ideations; I10 Essential (primary) hypertension; Z86.69 Personal history of other diseases of the nervous system and sense organs; Z79.899 Other long term (current) drug therapy; Z91.010 Allergy to peanuts; Z91.013 Allergy to seafood; Z88.6 Allergy status to analgesic agent; Z91.018 Allergy to other foods; Z98.890 Other specified postprocedural states; Z20.828 Contact with and (suspected) exposure to other viral communicable diseases
CPT/HCPCS: 36415; 71045; 80048; 80185; 80307; 81001; 82962; 84703; 85025; 94640; 96372; 99285; J2060; J3486; J7512; U0003; 80320; G0480

== ENCOUNTER 2020-11-28 22:33 | Emergency (ER) | payer SELFPAY ==
[2020-11-28] MEDS ORDERED: dexAMETHasone 20 MG/5 ML VIAL IM ONE (22:44)
[2020-11-28 22:51] VITALS: BP 119/68
--- NOTE | 2020-11-28 22:52 | Emergency Department Report ---
ED General Adult HPI - General Chief complaint: Adult Asthma Stated complaint: SOB PUI?: No Time Seen by Provider: 11/28/20 22:39 Source: patient, EMS (Verbal report received from emergency medical services. EMS documentation not available at time of chart dictation ), RN notes reviewed, old records reviewed Mode of arrival: Stretcher Limitations: No Limitations - History of Present Illness Initial comments: The patient was evaluated in the emergency department for symptoms described in the history of present illness. He/she was evaluated in the context of the global COVID-19 pandemic, which necessitated consideration that the patient might be at risk for infection with the virus that causes COVID-19. Institutional protocols and algorithms that pertain to the evaluation of patients at risk for COVID-19 are in a state of rapid change based on information released by regulatory bodies including the CDC and federal and state organizations. These policies and algorithms were followed during the patient's care in the emergency department. Please note that these policies, procedures and recommendations changed on a rapid basis. Patient is a 30-year-old female. I have evaluated this patient in the past. 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 Patient had a negative Covid test/negative flu test November 21, 2020. The patient was recently seen for medical clearance for psychiatric placement, and was referred to a local psychiatric hospital. Today, the patient is brought to the hospital by emergency medical services with a complaint of resolved cough, wheezing and shortness of breath. Patient was given 5 mg of albuterol by EMS, which resolved the patient's symptoms. As per her enclosed psychiatric documentation, she was written for albuterol nebulizer, 0.083%, every 2 hours for shortness of breath, via telephone order. The patient was then referred to the emergency room for evaluation and treatment. The patient denies physical pain. She states that she is not . She denies travel, surgery, leg pain, leg swelling, oral contraceptive use The patient indicates that she is back to her baseline. She still feels somewhat suicidal. She states she has not tried to overdose on anything. -: Gradual, days(s) Consistency: now resolved Improves with: medication Associated Symptoms: denies other symptoms - Related Data Home Medications Medication Instructions Recorded Confirmed Last Taken Prazosin HCl 2 mg PO HS 12/19/19 07/28/20 Unknown hydroCHLOROthiazide [HCTZ] 25 mg PO QDAY 12/19/19 07/28/20 Unknown levETIRAcetam [Keppra TAB] 750 mg PO BID 12/19/19 07/28/20 Unknown metFORMIN [Glucophage] 500 mg PO BID 12/19/19 07/28/20 Unknown Folic Acid 1 mg PO DAILY 07/28/20 07/28/20 Unknown Phenytoin [Dilantin] 300 mg PO BID 07/28/20 07/28/20 Unknown Previous Rx's Medication Instructions Recorded Last Taken Type Divalproex Dr [Depakote Dr] 500 mg PO BID #60 tablet 08/03/20 Unknown Rx Sertraline [Zoloft] 50 mg PO QDAY #30 tablet 08/03/20 Unknown Rx levETIRAcetam [Keppra] 750 mg PO BID #1 oral.liqd 08/03/20 Unknown Rx risperiDONE [RisperDAL] 1 mg PO BID #60 tablet 08/03/20 Unknown Rx Albuterol Sulfate [Albuterol 0.63% 0.63 mg IH Q4HR PRN #2 ml 11/28/20 Unknown Rx NEBS] Albuterol Sulfate [Proair 90 mcg IH Q4HR PRN #2 aer.pow.ba 11/28/20 Unknown Rx Respiclick] predniSONE [Deltasone] 40 mg PO QDAY #8 tab 11/28/20 Unknown Rx Allergies Allergy/AdvReac Type Severity Reaction Status Date / Time peanut Allergy Severe Anaphylaxis Verified 12/20/19 08:47 caffeine Allergy Shortness Verified 12/19/19 17:04 of Breath codeine Allergy Swelling Verified 12/19/19 17:04 Fish Containing Products Allergy Shortness Verified 12/19/19 17:04 of Breath grape Allergy Swelling Verified 12/19/19 17:04 ibuprofen Allergy Swelling Verified 12/19/19 17:04 latex Allergy Hives Verified 12/19/19 17:04 morphine Allergy Angioedema Verified 12/19/19 17:04 ondansetron [From Zofran] Allergy Hives Verified 12/19/19 17:04 pineapple Allergy Hives Verified 12/19/19 17:04 tomato Allergy Hives Verified 12/19/19 17:04 seafood Allergy Unknown Uncoded 09/12/19 10:14 ED Review of Systems ROS: Stated complaint: SOB Other details as noted in HPI Constitutional: other (Patient denies loss of taste and smell) ENT: congestion Respiratory: wheezing Cardiovascular: denies: chest pain Gastrointestinal: denies: abdominal pain Musculoskeletal: denies: back pain Psychiatric: suicidal thoughts ED Past Medical Hx - Past Medical History Hx Hypertension: Yes Hx Sickle Cell Disease: Yes Hx Seizures: Yes Hx Psychiatric Treatment: Yes (bipolar schiz) Additional medical history: 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 - Surgical History Hx Coronary Stent: No Hx Open Heart Surgery: No Hx Pacemaker: No Hx Internal Defibrillator: No Hx Cholecystectomy: No Hx Appendectomy: No Hx Breast Surgery: No Additional Surgical History: Lt foot - Social History Smoking Status: Never Smoker Substance Use Type: None - Medications Home Medications: Home Medications Medication Instructions Recorded Confirmed Last Taken Type Prazosin HCl 2 mg PO HS 12/19/19 07/28/20 Unknown History hydroCHLOROthiazide [HCTZ] 25 mg PO QDAY 12/19/19 07/28/20 Unknown History levETIRAcetam [Keppra TAB] 750 mg PO BID 12/19/19 07/28/20 Unknown History metFORMIN [Glucophage] 500 mg PO BID 12/19/19 07/28/20 Unknown History Folic Acid 1 mg PO DAILY 07/28/20 07/28/20 Unknown History Phenytoin [Dilantin] 300 mg PO BID 07/28/20 07/28/[address] [Deptiffanie Dr] 500 mg PO BID #60 tablet 08/03/20 Unknown Rx Sertraline [Zoloft] 50 mg PO QDAY #30 tablet 08/03/20 Unknown Rx levETIRAcetam [Keppra] 750 mg PO BID #1 oral.liqd 08/03/20 Unknown Rx risperiDONE [RisperDAL] 1 mg PO BID #60 tablet 08/03/20 Unknown Rx Albuterol Sulfate [Albuterol 0.63% 0.63 mg IH Q4HR PRN #2 ml 11/28/20 Unknown Rx NEBS] Albuterol Sulfate [Proair 90 mcg IH Q4HR PRN #2 aer.pow.ba 11/28/20 Unknown Rx Respiclick] predniSONE [Deltasone] 40 mg PO QDAY #8 tab 11/28/20 Unknown Rx ED Physical Exam - General Limitations: No Limitations General appearance: alert, obese - Head Head exam: Present: atraumatic, normocephalic - Eye Eye exam: Present: normal appearance, EOMI. Absent: nystagmus - ENT ENT exam: Present: normal exam, normal orophraynx, mucous membranes moist, normal external ear exam - Neck Neck exam: Present: normal inspection, full ROM. Absent: tenderness, meningismus - Respiratory Respiratory exam: Present: rhonchi (Faint rhonchi noted). Absent: respiratory distress, wheezes, rales, stridor - Cardiovascular Cardiovascular Exam: Present: normal rhythm, tachycardia, normal heart sounds. Absent: bradycardia, irregular rhythm, systolic murmur, diastolic murmur, rubs, gallop - GI/Abdominal GI/Abdominal exam: Present: soft. Absent: distended, tenderness, guarding, rebound, rigid, pulsatile mass - Extremities Exam Extremities exam: Present: full ROM, other (2+ pulses noted in the bilateral upper and lower extremities. There is no palpable cord. negative Homans sign. Muscular compartments are soft. The pelvis is stable.). Absent: normal inspection (Chronic appearing self-inflicted wounds noted on the left upper extremity, no acute or subacute wounds noted, without redness, pus or streaking), pedal edema, calf tenderness - Back Exam Back exam: Present: normal inspection, full ROM. Absent: tenderness, CVA tenderness (R), CVA tenderness (L), paraspinal tenderness, vertebral tenderness - Neurological Exam Neurological exam: Present: alert, other (No facial droop. Tongue midline. Extraocular movements intact bilaterally. Facial sensation intact to light touch in V1, V2, V3 distribution bilaterally. 5 and a 5 strength in 4 extremities. Sensation intact to light touch in 4 extremities.). Absent: motor sensory deficit - Psychiatric Psychiatric exam: Present: flat affect - Skin Skin exam: Present: warm, dry, intact, normal color. Absent: rash ED Course Vital Signs 11/28/20 11/28/20 22:34 23:20 Temperature 98.3 F Pulse Rate 111 H Respiratory 18 Rate Blood Pressure 119/68 Blood Pressure 119/68 [Left] O2 Sat by Pulse 98 Oximetry O2 Sat by Pulse 99 Oximetry [ Digit-Finger] - Reevaluation(s) Reevaluation #1: 11/28/20 22:51 Differential diagnosis, including but not limited to: Reactive airway disease, asthma, general medical examination Assessment and plan: 30-year-old female who reports a history of reactive airway disease, who is mildly tachycardic, heart rate 105 to 110 bpm after receiving 5 mg of albuterol, who denies travel, surgery, , oral contraceptive use, DVT and pulmonary embolism risk factors, presenting with probable reactive airways disease exacerbation. She is saturating at 99/100% on room air, has very faint rhonchi in her lungs, but these appear to be transmitted upper airway. We will obtain x-ray of the chest, nursing team to provide 5-minute walk test/trial of ambulation. She will be medicated with Decadron. Reevaluation #2: 11/28/20 23:27 Chest x-ray clear. Patient able to ambulate without desaturation. Tachycardia likely secondary to albuterol administration. - Pulse Oximetry Interpretation Digit-Finger Initial Pulse Oximetry Readin O2 Sat by Pulse Oximetry: 99 Actions Taken: none ED Medical Decision Making - Lab Data Vital Signs 11/28/20 11/28/20 22:34 22:54 Temperature 98.3 F Pulse Rate 111 H Respiratory 18 Rate Blood Pressure 119/68 Blood Pressure 119/68 [Left] O2 Sat by Pulse 98 Oximetry O2 Sat by Pulse 99 Oximetry [ Digit-Finger] - Radiology Data Radiology results: pending, report reviewed, image reviewed X-ray of the chest negative for acute findings. Critical care attestation.: If time is entered above; I have spent that time in minutes in the direct care of this critically ill patient, excluding procedure time. ED Disposition Clinical Impression: Reactive airway disease Disposition: [id number] PSY HOSP/PSY UNIT Is pt being admited?: No Does the pt Need Aspirin: No Condition: Good Instructions: Asthma, Adult Additional Instructions: Take the medications as directed. Follow-up with a medical doctor within the next 3 to 5 days for repeat checkup/evaluation. Recommend that patient avoid sedating medications. Avoid triggers for reactive airway disease if patient has any known allergies or intolerances. Please return to the emergency room right away with new pain, worsened pain, migration of pain, projectile vomiting, change in mental status, confusion, inability to tolerate liquid feeds, new, worsened or different symptoms not present on the initial emergency room evaluation. Prescriptions: Albuterol Sulfate [Albuterol 0.63% NEBS] 0.63 mg IH Q4HR PRN #2 ml PRN Reason: Wheezing predniSONE [Deltasone] 40 mg PO QDAY #8 tab Albuterol Sulfate [Proair Respiclick] 90 mcg IH Q4HR PRN #2 aer.pow.ba PRN Reason: Wheezing
--- NOTE | 2020-11-28 23:13 | XRay Report ---
XR chest 1V ap INDICATION / CLINICAL INFORMATION: wheezing, dyspnea, now resolved COMPARISON: 07/28/2020 FINDINGS: SUPPORT DEVICES: None. HEART / MEDIASTINUM: No significant abnormality. LUNGS / PLEURA: Lungs are clear. Costophrenic sulci are sharp. No pneumothorax. ADDITIONAL FINDINGS: No significant additional findings. IMPRESSION: 1. No acute findings. Signer Name: Davis Rios MD Signed: 11/28/2020 11:09 PM Workstation Name: [id number]
== END 2020-11-29 04:25 ==
LOC: ED 22:33
DX: J45.909 Unspecified asthma, uncomplicated (principal); I10 Essential (primary) hypertension; R56.9 Unspecified convulsions; F31.9 Bipolar disorder, unspecified; Z98.890 Other specified postprocedural states; Z79.84 Long term (current) use of oral hypoglycemic drugs; Z79.899 Other long term (current) drug therapy; Z91.010 Allergy to peanuts; Z91.018 Allergy to other foods; Z91.013 Allergy to seafood; Z88.8 Allergy status to other drugs, medicaments and biological substances
CPT/HCPCS: 71045; 96372; 99283; J1100

== ENCOUNTER 2020-12-01 11:05 | Emergency (ER) | payer SELFPAY ==
[2020-12-01] MEDS ORDERED: levETIRAcetam 1000 MG/NS 0.75% 1,000 MG/100 ML BAG IV ONE (11:18)
[2020-12-01] MEDS ORDERED: SODIUM CHLORIDE 0.9% 1000 ML 1,000 ML IV ONE (11:18)
--- NOTE | 2020-12-01 11:21 | Emergency Department Report ---
ED Seizure HPI - General Stated Complaint: SEIZURE Time Seen by Provider: 12/01/20 11:09 Source: patient, EMS - History of Present Illness Initial Comments: Patient is 30 years old female with history of seizure. Patient is taking Keppra 1000 mg twice a day. Patient brought to the emergency room via EMS from a local psychiatric facility, [facility] for evaluation of seizure. [facility] staff stated that patient had 1 episode of generalized tonic-clonic seizure. Patient was given 2 mg of Ativan by the staff. Upon arrival to the ER patient is alert, oriented x3 in no acute distress. Patient stated that she is compliant with her medication. Patient denied any fever, chills, cough, shortness of breath, chest pain, abdominal pain, nausea or vomiting. MD Complaint: seizure - Related Data Home Medications Medication Instructions Recorded Confirmed Last Taken Prazosin HCl 2 mg PO HS 12/19/19 07/28/20 Unknown hydroCHLOROthiazide [HCTZ] 25 mg PO QDAY 12/19/19 07/28/20 Unknown levETIRAcetam [Keppra TAB] 750 mg PO BID 12/19/19 07/28/20 Unknown metFORMIN [Glucophage] 500 mg PO BID 12/19/19 07/28/20 Unknown Folic Acid 1 mg PO DAILY 07/28/20 07/28/20 Unknown Phenytoin [Dilantin] 300 mg PO BID 07/28/20 07/28/20 Unknown Previous Rx's Medication Instructions Recorded Last Taken Type Divalproex Dr [Depakote Dr] 500 mg PO BID #60 tablet 08/03/20 Unknown Rx Sertraline [Zoloft] 50 mg PO QDAY #30 tablet 08/03/20 Unknown Rx levETIRAcetam [Keppra] 750 mg PO BID #1 oral.liqd 08/03/20 Unknown Rx risperiDONE [RisperDAL] 1 mg PO BID #60 tablet 08/03/20 Unknown Rx Albuterol Sulfate [Albuterol 0.63% 0.63 mg IH Q4HR PRN #2 ml 11/28/20 Unknown Rx NEBS] Albuterol Sulfate [Proair 90 mcg IH Q4HR PRN #2 aer.pow.ba 11/28/20 Unknown Rx Respiclick] predniSONE [Deltasone] 40 mg PO QDAY #8 tab 11/28/20 Unknown Rx Allergies Allergy/AdvReac Type Severity Reaction Status Date / Time peanut Allergy Severe Anaphylaxis Verified 12/20/19 08:47 caffeine Allergy Shortness Verified 12/19/19 17:04 of Breath codeine Allergy Swelling Verified 12/19/19 17:04 Fish Containing Products Allergy Shortness Verified 12/19/19 17:04 of Breath grape Allergy Swelling Verified 12/19/19 17:04 ibuprofen Allergy Swelling Verified 12/19/19 17:04 latex Allergy Hives Verified 12/19/19 17:04 morphine Allergy Angioedema Verified 12/19/19 17:04 ondansetron [From Zofran] Allergy Hives Verified 12/19/19 17:04 pineapple Allergy Hives Verified 12/19/19 17:04 tomato Allergy Hives Verified 12/19/19 17:04 seafood Allergy Unknown Uncoded 09/12/19 10:14 ED Review of Systems ROS: Stated complaint: SEIZURE Other details as noted in HPI Comment: All other systems reviewed and negative Constitutional: denies: chills, fever Respiratory: denies: cough, shortness of breath, SOB with exertion, SOB at rest Cardiovascular: denies: chest pain, palpitations Gastrointestinal: denies: abdominal pain, nausea, vomiting, diarrhea Musculoskeletal: denies: back pain Neurological: denies: headache, weakness 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 - Surgical History Hx Coronary Stent: No Hx Open Heart Surgery: No Hx Pacemaker: No Hx Internal Defibrillator: No Hx Cholecystectomy: No Hx Appendectomy: No Hx Breast Surgery: No Additional Surgical History: Lt foot - Social History Smoking Status: Never Smoker Substance Use Type: None - Medications Home Medications: Home Medications Medication Instructions Recorded Confirmed Last Taken Type Prazosin HCl 2 mg PO HS 12/19/19 07/28/20 Unknown History hydroCHLOROthiazide [HCTZ] 25 mg PO QDAY 12/19/19 07/28/20 Unknown History levETIRAcetam [Keppra TAB] 750 mg PO BID 12/19/19 07/28/20 Unknown History metFORMIN [Glucophage] 500 mg PO BID 12/19/19 07/28/20 Unknown History Folic Acid 1 mg PO DAILY 07/28/20 07/28/20 Unknown History Phenytoin [Dilantin] 300 mg PO BID 07/28/20 07/28/20 Unknown History Divalproex [Berenice Joseph] 500 mg PO BID #60 tablet 08/03/20 Unknown Rx Sertraline [Zoloft] 50 mg PO QDAY #30 tablet 08/03/20 Unknown Rx levETIRAcetam [Keppra] 750 mg PO BID #1 oral.liqd 08/03/20 Unknown Rx risperiDONE [RisperDAL] 1 mg PO BID #60 tablet 08/03/20 Unknown Rx Albuterol Sulfate [Albuterol 0.63% 0.63 mg IH Q4HR PRN #2 ml 11/28/20 Unknown Rx NEBS] Albuterol Sulfate [Proair 90 mcg IH Q4HR PRN #2 aer.pow.ba 11/28/20 Unknown Rx Respiclick] predniSONE [Deltasone] 40 mg PO QDAY #8 tab 11/28/20 Unknown Rx ED Physical Exam - General General appearance: alert, in no apparent distress - Head Head exam: Present: atraumatic, normocephalic, normal inspection - Eye Eye exam: Present: normal appearance, PERRL - ENT ENT exam: Present: normal exam, normal orophraynx, mucous membranes moist - Neck Neck exam: Present: normal inspection, full ROM. Absent: tenderness, meningismus - Respiratory Respiratory exam: Present: normal lung sounds bilaterally - Cardiovascular Cardiovascular Exam: Present: regular rate, normal rhythm, normal heart sounds - GI/Abdominal GI/Abdominal exam: Present: soft, normal bowel sounds. Absent: distended, tenderness, guarding, rebound, rigid, organomegaly, mass, bruit, pulsatile mass, hernia - Extremities Exam Extremities exam: Present: normal inspection, full ROM, normal capillary refill. Absent: tenderness, pedal edema, joint swelling, calf tenderness - Back Exam Back exam: Present: normal inspection, full ROM. Absent: CVA tenderness (R), CVA tenderness (L) - Neurological Exam Neurological exam: Present: alert, oriented X3, CN II-XII intact - Psychiatric Psychiatric exam: Present: normal mood - Skin Skin exam: Present: warm, intact, normal color ED Course Vital Signs 12/01/20 12/01/20 12:00 12:30 Temperature 98 F 98 F Pulse Rate 95 H Respiratory 20 20 Rate Blood Pressure 129/77 Blood Pressure 124/77 [left arm] O2 Sat by Pulse 99 Oximetry ED Medical Decision Making - Lab Data Result diagrams: 12/01/20 14:36 12/01/20 14:36 - Medical Decision Making Patient is 30 years old female with history of seizure. Patient is taking Keppra 1000 mg twice a day. Patient brought to the emergency room via EMS from a local psychiatric facility, [facility] for evaluation of seizure. [facility] staff stated that patient had 1 episode of generalized tonic-clonic seizure. Patient was given 2 mg of Ativan by the staff. Upon arrival to the ER patient is alert, oriented x3 in no acute distress. Patient stated that she is compliant with her medication. Patient denied any fever, chills, cough, shortness of breath, chest pain, abdominal pain, nausea or vomiting. Labs reviewed and is unremarkable. Patient received Keppra 1 g in the emergency room. No seizure activity observed. Patient to return back to her psychiatric facility and to follow-up with her neurologist in the next 2 to 3 days for further management. Critical care attestation.: If time is entered above; I have spent that time in minutes in the direct care of this critically ill patient, excluding procedure time. ED Disposition Clinical Impression: Seizure Disposition: DC/TX-65 PSY HOSP/PSY UNIT Is pt being admited?: No Condition: Stable Instructions: Seizure, Adult Referrals: PRIMARY CARE, [Primary Care Provider] - 3-5 Days
[2020-12-01] MEDS ORDERED: levETIRAcetam 500 MG TAB PO ONE (14:49)
[2020-12-01 14:51] LABS: Hemoglobin 10.2 gm/dl (10.1-14.3); Mean Corpuscular Volume 78 fl (79-97); Red Blood Count 4.11 M/mm3 (3.65-5.03)
[2020-12-01 14:52] LABS: Basophils % (Auto) 0.7 % (0.0-1.8); Eosinophils % (Auto) 0.9 % (0.0-4.3); Lymphocytes # (Auto) 3.1 K/mm3 (1.2-5.4); Lymphocytes % (Auto) 41.5 % (13.4-35.0); Mean Corpuscular HGB Conc 32 % (30-34); Monocytes # (Auto) 0.5 K/mm3 (0.0-0.8); Monocytes % (Auto) 7.3 % (0.0-7.3); Platelet Count 491 K/mm3 (140-440); Red Cell Distribution Width 18.5 % (13.2-15.2)
[2020-12-01 14:53] LABS: Basophils # (Auto) 0.1 K/mm3 (0.0-0.1); Eosinophils # (Auto) 0.1 K/mm3 (0.0-0.4)
[2020-12-01 15:01] LABS: Alanine Aminotransferase 6 units/L (7-56); Albumin 3.4 g/dL (3.9-5); Blood Urea Nitrogen 7 mg/dL (7-17); Calcium 8.7 mg/dL (8.4-10.2); Hemolysis Index 14
[2020-12-01 15:02] LABS: BUN/Creatinine Ratio 12; Bilirubin,Direct < 0.2 mg/dL (0-0.2)
[2020-12-01 16:31] LABS: Bilirubin,Urine NEG (Negative); Blood,Urine NEG (Negative); Color,Urine Straw (Yellow); Protein,Urine <15 mg/dL mg/dL (Negative); RBC,Urine < 1.0 /HPF (0.0-6.0); Urobilinogen,Urine < 2.0 mg/dL (<2.0)
[2020-12-01 16:34] LABS: Amphetamine Screen,Urine Negative; Benzodiazepines Screen,Urine Negative; Cannabinoid Screen,Urine Negative; Cocaine Screen,Urine Negative; Methadone Screen,Urine Negative; Opiate Screen,Urine Negative
[2020-12-01 19:02] VITALS: BP 113/75
== END 2020-12-01 18:20 ==
LOC: ED 11:05
DX: G40.909 Epilepsy, unspecified, not intractable, without status epilepticus (principal); I10 Essential (primary) hypertension; E11.9 Type 2 diabetes mellitus without complications; F25.0 Schizoaffective disorder, bipolar type; J45.909 Unspecified asthma, uncomplicated; Z79.899 Other long term (current) drug therapy; Z88.8 Allergy status to other drugs, medicaments and biological substances; Z91.013 Allergy to seafood; Z88.6 Allergy status to analgesic agent; Z91.018 Allergy to other foods; Z98.890 Other specified postprocedural states; Z91.010 Allergy to peanuts
CPT/HCPCS: 36415; 80048; 80076; 80307; 81001; 84703; 85025

== ENCOUNTER 2020-12-05 09:07 | Emergency (ER) | payer SELFPAY ==
--- NOTE | 2020-12-05 09:34 | Emergency Department Report ---
HPI - General Chief Complaint: Altered Mental Status Time Seen by Provider: 12/05/20 09:09 - HPI HPI: This is a 30-year-old -Romanian female who presents to the emergency department via EMS from her [facility] facility with a complaint of being unresponsive. The patient was seen awake and at her baseline mentation at some point this morning. She was found unresponsive shortly prior to presentation. The patient appears to be protecting her airway but otherwise has been unresponsive to verbal or tactile stimuli. The patient went to [place] about 4 days ago after after being cleared here secondary to some acute psychosis. The patient has a past medical history of hypertension and seizures, and has a psychiatric history of bipolar disorder and major depressive disorder. 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 - Surgical History Hx Coronary Stent: No Hx Open Heart Surgery: No Hx Pacemaker: No Hx Internal Defibrillator: No Hx Cholecystectomy: No Hx Appendectomy: No Hx Breast Surgery: No Additional Surgical History: Lt foot - Social History Smoking Status: Never Smoker Substance Use Type: None - Medications Home Medications: Home Medications Medication Instructions Recorded Confirmed Last Taken Type Prazosin HCl 2 mg PO HS 12/19/19 07/28/20 Unknown History hydroCHLOROthiazide [HCTZ] 25 mg PO QDAY 12/19/19 07/28/20 Unknown History levETIRAcetam [Keppra TAB] 750 mg PO BID 12/19/19 07/28/20 Unknown History metFORMIN [Glucophage] 500 mg PO BID 12/19/19 07/28/20 Unknown History Folic Acid 1 mg PO DAILY 07/28/20 07/28/20 Unknown History Phenytoin [Dilantin] 300 mg PO BID 07/28/20 07/28/20 Unknown History Divalproex [Berenice Joseph] 500 mg PO BID #60 tablet 08/03/20 Unknown Rx Sertraline [Zoloft] 50 mg PO QDAY #30 tablet 08/03/20 Unknown Rx levETIRAcetam [Keppra] 750 mg PO BID #1 oral.liqd 08/03/20 Unknown Rx risperiDONE [RisperDAL] 1 mg PO BID #60 tablet 08/03/20 Unknown Rx Albuterol Sulfate [Albuterol 0.63% 0.63 mg IH Q4HR PRN #2 ml 11/28/20 Unknown Rx NEBS] Albuterol Sulfate [Proair 90 mcg IH Q4HR PRN #2 aer.pow.ba 11/28/20 Unknown Rx Respiclick] predniSONE [Deltasone] 40 mg PO QDAY #8 tab 11/28/20 Unknown Rx levETIRAcetam [Keppra TAB] 750 mg PO BID #60 tablet 12/01/20 Unknown Rx ED Review of Systems ROS: Stated complaint: UNRESPONSIVE Other details as noted in HPI Comment: Unobtainable due to pts medical conditions Physical Exam - Physical Exam Physical Exam: GENERAL: The patient is well-developed well-nourished. HENT: Normocephalic. Atraumatic. Patient has moist mucous membranes. EYES: Pupils equal reactive to light bilaterally. NECK: Supple. Trachea is midline. CHEST/LUNGS: Clear to auscultation. There is no respiratory distress noted. HEART/CARDIOVASCULAR: Regular. There is no tachycardia. There is no murmur. ABDOMEN: Abdomen is soft. Nondistended. Patient has normal bowel sounds. SKIN: Skin is warm and dry. NEURO: The patient is nonresponsive to verbal or tactile stimuli but this appears intentional. Positive gag reflex. MUSCULOSKELETAL: There is no tenderness or deformity. ED Medical Decision Making - Lab Data Result diagrams: 12/05/20 09:29 12/05/20 09:29 Lab Results 12/05/20 12/05/20 12/05/20 Range/Units 09:29 09:29 09:29 WBC 6.6 (4.5-11.0) K/mm3 RBC 4.15 (3.65-5.03) M/mm3 Hgb 10.5 (10.1-14.3) gm/dl Hct 32.3 (30.3-42.9) % MCV 78 L (79-97) fl MCH 25 L (28-32) pg MCHC 33 (30-34) % RDW 18.3 H (13.2-15.2) % Plt Count 472 H (140-440) K/mm3 Lymph % (Auto) 37.6 H (13.4-35.0) % Leon % (Auto) 7.7 H (0.0-7.3) % Eos % (Auto) 1.2 (0.0-4.3) % Baso % (Auto) 0.4 (0.0-1.8) % Lymph # (Auto) 2.5 (1.2-5.4) K/mm3 Leon # (Auto) 0.5 (0.0-0.8) K/mm3 Eos # (Auto) 0.1 (0.0-0.4) K/mm3 Baso # (Auto) 0.0 (0.0-0.1) K/mm3 Seg Neutrophils % 53.1 (40.0-70.0) % Seg Neutrophils # 3.5 (1.8-7.7) K/mm3 Sodium 136 L (137-145) mmol/L Potassium 4.1 (3.6-5.0) mmol/L Chloride 101.1 (98-107) mmol/L Carbon Dioxide 25 (22-30) mmol/L Anion Gap 14 mmol/L BUN 8 (7-17) mg/dL Creatinine 0.6 (0.6-1.2) mg/dL Estimated GFR > 60 ml/min BUN/Creatinine Ratio 13 % Glucose 91 (65-100) mg/dL POC Glucose (70-105) mg/dL Calcium 9.1 (8.4-10.2) mg/dL Total Bilirubin 0.20 (0.1-1.2) mg/dL AST 11 (5-40) units/L ALT 6 L (7-56) units/L Alkaline Phosphatase 49 (35-129) units/L Ammonia 25.0 (25-60) umol/L Total Creatine Kinase 52 (30-135) units/L Troponin T < 0.010 (0.00-0.029) ng/mL Total Protein 6.5 (6.3-8.2) g/dL Albumin 3.7 L (3.9-5) g/dL Albumin/Globulin Ratio 1.3 % TSH (0.270-4.200) mlU/mL Urine Color (Yellow) Urine Turbidity (Clear) Urine pH (5.0-7.0) Ur Specific [place] (1.003-1.030) Urine Protein (Negative) mg/dL Urine Glucose (UA) (Negative) mg/dL Urine Ketones (Negative) mg/dL Urine Blood (Negative) Urine Nitrite (Negative) Urine Bilirubin (Negative) Urine Urobilinogen (<2.0) mg/dL Ur Leukocyte Esterase (Negative) Urine WBC (Auto) (0.0-6.0) /HPF Urine RBC (Auto) (0.0-6.0) /HPF U Epithel Cells (Auto) (0-13.0) /HPF Urine Bacteria (Auto) (Negative) /HPF Urine Opiates Screen Urine Methadone Screen Ur Barbiturates Screen Ur Phencyclidine Scrn Ur Amphetamines Screen U Benzodiazepines Scrn Urine Cocaine Screen U Marijuana (THC) Screen Drugs of Abuse Note Plasma/Serum Alcohol (0-0.07) % 12/05/20 12/05/20 12/05/20 Range/Units 09:29 09:29 12:40 WBC (4.5-11.0) K/mm3 RBC (3.65-5.03) M/mm3 Hgb (10.1-14.3) gm/dl Hct (30.3-42.9) % MCV (79-97) fl MCH (28-32) pg MCHC (30-34) % RDW (13.2-15.2) % Plt Count (140-440) K/mm3 Lymph % (Auto) (13.4-35.0) % Leon % (Auto) (0.0-7.3) % Eos % (Auto) (0.0-4.3) % Baso % (Auto) (0.0-1.8) % Lymph # (Auto) (1.2-5.4) K/mm3 Leon # (Auto) (0.0-0.8) K/mm3 Eos # (Auto) (0.0-0.4) K/mm3 Baso # (Auto) (0.0-0.1) K/mm3 Seg Neutrophils % (40.0-70.0) % Seg Neutrophils # (1.8-7.7) K/mm3 Sodium (137-145) mmol/L Potassium (3.6-5.0) mmol/L Chloride (98-107) mmol/L Carbon Dioxide (22-30) mmol/L Anion Gap mmol/L BUN (7-17) mg/dL Creatinine (0.6-1.2) mg/dL Estimated GFR ml/min BUN/Creatinine Ratio % Glucose (65-100) mg/dL POC Glucose 82 (70-105) mg/dL Calcium (8.4-10.2) mg/dL Total Bilirubin (0.1-1.2) mg/dL AST (5-40) units/L ALT (7-56) units/L Alkaline Phosphatase (35-129) units/L Ammonia (25-60) umol/L Total Creatine Kinase (30-135) units/L Troponin T (0.00-0.029) ng/mL Total Protein (6.3-8.2) g/dL Albumin (3.9-5) g/dL Albumin/Globulin Ratio % TSH 3.970 (0.270-4.200) mlU/mL Urine Color (Yellow) Urine Turbidity (Clear) Urine pH (5.0-7.0) Ur Specific [place] (1.003-1.030) Urine Protein (Negative) mg/dL Urine Glucose (UA) (Negative) mg/dL Urine Ketones (Negative) mg/dL Urine Blood (Negative) Urine Nitrite (Negative) Urine Bilirubin (Negative) Urine Urobilinogen (<2.0) mg/dL Ur Leukocyte Esterase (Negative) Urine WBC (Auto) (0.0-6.0) /HPF Urine RBC (Auto) (0.0-6.0) /HPF U Epithel Cells (Auto) (0-13.0) /HPF Urine Bacteria (Auto) (Negative) /HPF Urine Opiates Screen Urine Methadone Screen Ur Barbiturates Screen Ur Phencyclidine Scrn Ur Amphetamines Screen U Benzodiazepines Scrn Urine Cocaine Screen U Marijuana (THC) Screen Drugs of Abuse Note Plasma/Serum Alcohol < 0.01 (0-0.07) % 12/05/20 12/05/20 Range/Units Unknown Unknown WBC (4.5-11.0) K/mm3 RBC (3.65-5.03) M/mm3 Hgb (10.1-14.3) gm/dl Hct (30.3-42.9) % MCV (79-97) fl MCH (28-32) pg MCHC (30-34) % RDW (13.2-15.2) % Plt Count (140-440) K/mm3 Lymph % (Auto) (13.4-35.0) % Leon % (Auto) (0.0-7.3) % Eos % (Auto) (0.0-4.3) % Baso % (Auto) (0.0-1.8) % Lymph # (Auto) (1.2-5.4) K/mm3 Leon # (Auto) (0.0-0.8) K/mm3 Eos # (Auto) (0.0-0.4) K/mm3 Baso # (Auto) (0.0-0.1) K/mm3 Seg Neutrophils % (40.0-70.0) % Seg Neutrophils # (1.8-7.7) K/mm3 Sodium (137-145) mmol/L Potassium (3.6-5.0) mmol/L Chloride (98-107) mmol/L Carbon Dioxide (22-30) mmol/L Anion Gap mmol/L BUN (7-17) mg/dL Creatinine (0.6-1.2) mg/dL Estimated GFR ml/min BUN/Creatinine Ratio % Glucose (65-100) mg/dL POC Glucose (70-105) mg/dL Calcium (8.4-10.2) mg/dL Total Bilirubin (0.1-1.2) mg/dL AST (5-40) units/L ALT (7-56) units/L Alkaline Phosphatase (35-129) units/L Ammonia (25-60) umol/L Total Creatine Kinase (30-135) units/L Troponin T (0.00-0.029) ng/mL Total Protein (6.3-8.2) g/dL Albumin (3.9-5) g/dL Albumin/Globulin Ratio % TSH (0.270-4.200) mlU/mL Urine Color Yellow (Yellow) Urine Turbidity Slightly-cloudy (Clear) Urine pH 5.0 (5.0-7.0) Ur Specific [place] 1.020 (1.003-1.030) Urine Protein <15 mg/dl (Negative) mg/dL Urine Glucose (UA) Neg (Negative) mg/dL Urine Ketones Neg (Negative) mg/dL Urine Blood Neg (Negative) Urine Nitrite Neg (Negative) Urine Bilirubin Neg (Negative) Urine Urobilinogen < 2.0 (<2.0) mg/dL Ur Leukocyte Esterase Neg (Negative) Urine WBC (Auto) 3.0 (0.0-6.0) /HPF Urine RBC (Auto) 1.0 (0.0-6.0) /HPF U Epithel Cells (Auto) 10.0 (0-13.0) /HPF Urine Bacteria (Auto) 1+ (Negative) /HPF Urine Opiates Screen Negative Urine Methadone Screen Negative Ur Barbiturates Screen Negative Ur Phencyclidine Scrn Negative Ur Amphetamines Screen Negative U Benzodiazepines Scrn Negative Urine Cocaine Screen Negative U Marijuana (THC) Screen Negative Drugs of Abuse Note Disclamer Plasma/Serum Alcohol (0-0.07) % - EKG Data -: EKG Interpreted by Ct EKG shows normal: sinus rhythm, axis, intervals, QRS complexes (Q waves to the septal leads), ST-T waves Rate: normal - EKG Data When compared to previous EKG there are: no significant change Interpretation: unchanged when compared t (07/28/20) - Radiology Data Radiology results: report reviewed CT HEAD WITHOUT CONTRAST INDICATION / CLINICAL INFORMATION: Altered mental status. TECHNIQUE: All CT scans at this location are performed using CT dose reduction for ALARA by means of automated exposure control. COMPARISON: None available. FINDINGS: HEMORRHAGE: No evidence of intracranial hemorrhage or extra-axial fluid collection. EXTRA-AXIAL SPACES: Cortical sulci, sylvian fissures and basilar cisterns have an unremarkable appearance. VENTRICULAR SYSTEM: The third and lateral ventricles are of normal size and configuration. CEREBRAL PARENCHYMA: No areas of abnormal brain parenchymal attenuation are identified. There is no indication of recent infarction. MIDLINE SHIFT OR HERNIATION: There is no mass effect. CEREBELLUM / BRAINSTEM: Brainstem and cerebellum have an unremarkable appearance. MIDLINE STRUCTURES:No abnormalities of the pituitary gland or pineal region are identified. INTRACRANIAL VESSELS:No abnormalities are identified on this noncontrast head CT. ORBITS: visualized portions of the orbits have an unremarkable appearance. SOFT TISSUES of HEAD: No significant abnormality. CALVARIUM: Evaluation of bone windows reveals no abnormalities. PARANASAL SINUSES / MASTOID AIR CELLS: Visualized portions of the paranasal sinuses are free from inflammatory mucosal disease. Mastoid air cells are normally pneumatized. ADDITIONAL FINDINGS: None. IMPRESSION: 1. No intracranial abnormality on head CT without contrast.. - Medical Decision Making This patient initially presents to the emergency department from her psychiatric facility with a complaint of being unresponsive. The patient was seen awake and alert prior to this at her facility. Upon arrival patient does appear unresponsive to verbal or tactile stimuli. However, there were signs that this was intentional or psychogenic. The patient thought to keep her eyelids closed when I attempted to manually open them. Once open she appears to have a blinking reflex. She appears to have some resistance when moving her extremities around. The patient's vital signs were reassuring and she appeared to be maintaining her airway. The patient also appeared to have a gag reflex. A CT scan of the head without contrast was performed that does not show any bleed, shift, mass, ischemia, large vessel occlusion, or any other acute process. Chest x-ray does not show any pneumonia, pleural effusions, pneumothorax, or any other acute process. The patient's labs have been unremarkable including CBC, metabolic panel, urinalysis, blood alcohol level, UDS. About 45 minutes after the patient's arrival the patient suddenly became responsive and was asking for food. She was seen sitting up, eating, conversing. There was another instance during her ED course in which the patient suddenly went "unresponsive." Once again, the patient had signs that this was intentional and shortly after this reevaluation she was once again awake and alert. The patient had a negative CT scan of the head. Labs have been unremarkable. Vital signs reassuring throughout her ED course including being afebrile. The patient has been seen awake and alert and oriented over the past 1 to 2 hours. There are no focal, motor or sensory deficits and her cranial nerves are intact. For all these reasons patient appears safe for discharge back to her psychiatric facility. Critical Care Time: No Critical care attestation.: If time is entered above; I have spent that time in minutes in the direct care of this critically ill patient, excluding procedure time. ED Disposition Clinical Impression: Unresponsive episode Bipolar disorder Qualifiers: Active/Remission status: remission status unspecified Qualified Code(s): F31.9 - Bipolar disorder, unspecified Disposition: DC/TX-65 PSY HOSP/PSY UNIT Is pt being admited?: No Condition: Stable Instructions: Managing Bipolar Disorder, Mixed Bipolar Disorder Additional Instructions: Please follow-up with a primary care physician when you are done at the psychiatric facility. Take all medications as prescribed. Return to the emergency department with any worsening of your symptoms, new or concerning symptoms not addressed during this current emergency department visit, or with any acute distress. Referrals: PRIMARY CAREMD [Primary Care Provider] - 3-5 Days Time of Disposition: 13:48
--- NOTE | 2020-12-05 09:50 | XRay Report ---
CHEST 1 VIEW INDICATION / CLINICAL INFORMATION: Altered mental status. COMPARISON: 10/31/2020 FINDINGS: SUPPORT DEVICES: None. HEART / MEDIASTINUM: No significant abnormality. LUNGS / PLEURA: No significant pulmonary or pleural abnormality. No pneumothorax. ADDITIONAL FINDINGS: No significant additional findings. IMPRESSION: 1. No acute findings. No interval change. Signer Name: Sandi Mccullough MD Signed: 12/05/2020 9:45 AM Workstation Name: [id number]
[2020-12-05 10:11] LABS: Alanine Aminotransferase 6 units/L (7-56); Albumin 3.7 g/dL (3.9-5); Blood Urea Nitrogen 8 mg/dL (7-17); Calcium 9.1 mg/dL (8.4-10.2); Hemolysis Index 0
[2020-12-05 10:12] LABS: BUN/Creatinine Ratio 13
[2020-12-05 10:18] LABS: Basophils % (Auto) 0.4 % (0.0-1.8); Eosinophils # (Auto) 0.1 K/mm3 (0.0-0.4); Eosinophils % (Auto) 1.2 % (0.0-4.3); Hematocrit 32.3 % (30.3-42.9); Hemoglobin 10.5 gm/dl (10.1-14.3); Lymphocytes # (Auto) 2.5 K/mm3 (1.2-5.4); Lymphocytes % (Auto) 37.6 % (13.4-35.0); Mean Corpuscular HGB Conc 33 % (30-34); Mean Corpuscular Volume 78 fl (79-97); Monocytes # (Auto) 0.5 K/mm3 (0.0-0.8); Monocytes % (Auto) 7.7 % (0.0-7.3); Platelet Count 472 K/mm3 (140-440); Red Blood Count 4.15 M/mm3 (3.65-5.03); Red Cell Distribution Width 18.3 % (13.2-15.2)
--- NOTE | 2020-12-05 11:05 | Cat Scan Report ---
CT HEAD WITHOUT CONTRAST INDICATION / CLINICAL INFORMATION: Altered mental status. TECHNIQUE: All CT scans at this location are performed using CT dose reduction for ALARA by means of automated e xposure control. COMPARISON: None available. FINDINGS: HEMORRHAGE: No evidence of intracranial hemorrhage or extra-axial fluid collection. EXTRA-AXIAL SPACES: Cortical sulci, sylvian fissures and basilar cisterns have an unremarkable appear ance. VENTRICULAR SYSTEM: The third and lateral ventricles are of normal size and configuration. CEREBRAL PARENCHYMA: No areas of abnormal brain parenchymal attenuation are identified. There is no i ndication of recent infarction. MIDLINE SHIFT OR HERNIATION: There is no mass effect. CEREBELLUM / BRAINSTEM: Brainstem and cerebellum have an unremarkable appearance. MIDLINE STRUCTURES:No abnormalities of the pituitary gland or pineal region are identified. INTRACRANIAL VESSELS:No abnormalities are identified on this noncontrast head CT. ORBITS: visualized portions of the orbits have an unremarkable appearance. SOFT TISSUES of HEAD: No significant abnormality. CALVARIUM: Evaluation of bone windows reveals no abnormalities. PARANASAL SINUSES / MASTOID AIR CELLS: Visualized portions of the paranasal sinuses are free from inf lammatory mucosal disease. Mastoid air cells are normally pneumatized. ADDITIONAL FINDINGS: None. IMPRESSION: 1. No intracranial abnormality on head CT without contrast.. Signer Name: Juan Birmingham MD Signed: 12/05/2020 11:00 AM Workstation Name: [id number]
[2020-12-05 11:41] LABS: Bacteria,Urine 1+ /HPF (Negative); Bilirubin,Urine NEG (Negative); Blood,Urine NEG (Negative); Color,Urine Yellow (Yellow); Protein,Urine <15 mg/dL mg/dL (Negative); Urobilinogen,Urine < 2.0 mg/dL (<2.0)
[2020-12-05 11:44] LABS: Amphetamine Screen,Urine Negative; Benzodiazepines Screen,Urine Negative; Cannabinoid Screen,Urine Negative; Cocaine Screen,Urine Negative; Methadone Screen,Urine Negative; Opiate Screen,Urine Negative
[2020-12-05 15:10] VITALS: BP 110/73
--- NOTE | 2020-12-07 09:19 | Electrocardiograph Report ---
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
== END 2020-12-05 15:05 ==
LOC: ED 09:07
DX: F25.0 Schizoaffective disorder, bipolar type (principal); R41.89 Other symptoms and signs involving cognitive functions and awareness; E11.9 Type 2 diabetes mellitus without complications; I10 Essential (primary) hypertension; J45.909 Unspecified asthma, uncomplicated; Z86.69 Personal history of other diseases of the nervous system and sense organs; Z88.8 Allergy status to other drugs, medicaments and biological substances; Z91.010 Allergy to peanuts; Z91.018 Allergy to other foods; Z91.013 Allergy to seafood; Z79.899 Other long term (current) drug therapy; Z98.890 Other specified postprocedural states
CPT/HCPCS: 36415; 70450; 71045; 80053; 80307; 80320; 81001; 82140; 82550; 82962; 84443; 84484; 85025; 93005; G0480

== ENCOUNTER 2020-12-08 16:36 | Emergency (ER) | payer SELFPAY ==
--- NOTE | 2020-12-08 17:03 | Emergency Department Report ---
ED General Adult HPI - General Chief complaint: Seizure Stated complaint: SEIZURE Time Seen by Provider: 12/08/20 16:56 Source: patient Mode of arrival: Stretcher Limitations: No Limitations - History of Present Illness Initial comments: Patient is a 30-year-old female with past medical history of seizure disorder presents emergency department for evaluation of possible generalized tonic- clonic seizure prior to arrival. Patient states she only fell over, is unsure if she had seizure, denies tongue laceration, denies incontinence, denies noncompliance with Keppra. Patient states she uses marijuana, denies other drug use, denies alcohol intoxication, alcohol use. - Related Data Home Medications Medication Instructions Recorded Confirmed Last Taken Prazosin HCl 2 mg PO HS 12/19/19 07/28/20 Unknown hydroCHLOROthiazide [HCTZ] 25 mg PO QDAY 12/19/19 07/28/20 Unknown levETIRAcetam [Keppra TAB] 750 mg PO BID 12/19/19 07/28/20 Unknown metFORMIN [Glucophage] 500 mg PO BID 12/19/19 07/28/20 Unknown Folic Acid 1 mg PO DAILY 07/28/20 07/28/20 Unknown Phenytoin [Dilantin] 300 mg PO BID 07/28/20 07/28/20 Unknown Previous Rx's Medication Instructions Recorded Last Taken Type Divalproex Dr [Berenice Dr] 500 mg PO BID #60 tablet 08/03/20 Unknown Rx Sertraline [Zoloft] 50 mg PO QDAY #30 tablet 08/03/20 Unknown Rx levETIRAcetam [Keppra] 750 mg PO BID #1 oral.liqd 08/03/20 Unknown Rx risperiDONE [RisperDAL] 1 mg PO BID #60 tablet 08/03/20 Unknown Rx Albuterol Sulfate [Albuterol 0.63% 0.63 mg IH Q4HR PRN #2 ml 11/28/20 Unknown Rx NEBS] Albuterol Sulfate [Proair 90 mcg IH Q4HR PRN #2 aer.pow.ba 11/28/20 Unknown Rx Respiclick] predniSONE [Deltasone] 40 mg PO QDAY #8 tab 11/28/20 Unknown Rx levETIRAcetam [Keppra TAB] 750 mg PO BID #60 tablet 12/01/20 Unknown Rx Allergies Allergy/AdvReac Type Severity Reaction Status Date / Time peanut Allergy Severe Anaphylaxis Verified 12/08/20 17:03 caffeine Allergy Shortness Verified 12/08/20 17:03 of Breath codeine Allergy Swelling Verified 12/08/20 17:03 Fish Containing Products Allergy Shortness Verified 12/08/20 17:03 of Breath grape Allergy Swelling Verified 12/08/20 17:03 ibuprofen Allergy Swelling Verified 12/08/20 17:03 latex Allergy Hives Verified 12/08/20 17:03 morphine Allergy Angioedema Verified 12/08/20 17:03 ondansetron [From Zofran] Allergy Hives Verified 12/08/20 17:03 pineapple Allergy Hives Verified 12/08/20 17:03 tomato Allergy Hives Verified 12/08/20 17:03 seafood Allergy Unknown Uncoded 09/12/19 10:14 ED Review of Systems ROS: Stated complaint: SEIZURE Other details as noted in HPI Comment: All other systems reviewed and negative 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 - Surgical History Hx Coronary Stent: No Hx Open Heart Surgery: No Hx Pacemaker: No Hx Internal Defibrillator: No Hx Cholecystectomy: No Hx Appendectomy: No Hx Breast Surgery: No Additional Surgical History: Lt foot - Social History Smoking Status: Never Smoker Substance Use Type: None - Medications Home Medications: Home Medications Medication Instructions Recorded Confirmed Last Taken Type Prazosin HCl 2 mg PO HS 12/19/19 07/28/20 Unknown History hydroCHLOROthiazide [HCTZ] 25 mg PO QDAY 12/19/19 07/28/20 Unknown History levETIRAcetam [Keppra TAB] 750 mg PO BID 12/19/19 07/28/20 Unknown History metFORMIN [Glucophage] 500 mg PO BID 12/19/19 07/28/20 Unknown History Folic Acid 1 mg PO DAILY 07/28/20 07/28/20 Unknown History Phenytoin [Dilantin] 300 mg PO BID 07/28/20 07/28/20 Unknown History Divalproex [Berenice Joseph] 500 mg PO BID #60 tablet 08/03/20 Unknown Rx Sertraline [Zoloft] 50 mg PO QDAY #30 tablet 08/03/20 Unknown Rx levETIRAcetam [Keppra] 750 mg PO BID #1 oral.liqd 08/03/20 Unknown Rx risperiDONE [RisperDAL] 1 mg PO BID #60 tablet 08/03/20 Unknown Rx Albuterol Sulfate [Albuterol 0.63% 0.63 mg IH Q4HR PRN #2 ml 11/28/20 Unknown Rx NEBS] Albuterol Sulfate [Proair 90 mcg IH Q4HR PRN #2 aer.pow.ba 11/28/20 Unknown Rx Respiclick] predniSONE [Deltasone] 40 mg PO QDAY #8 tab 11/28/20 Unknown Rx levETIRAcetam [Keppra TAB] 750 mg PO BID #60 tablet 12/01/20 Unknown Rx ED Physical Exam - General Limitations: No Limitations General appearance: alert, in no apparent distress - Head Head exam: Present: atraumatic, normocephalic - Eye Eye exam: Present: normal appearance - ENT ENT exam: Present: mucous membranes moist - Neck Neck exam: Present: normal inspection - Respiratory Respiratory exam: Present: normal lung sounds bilaterally. Absent: respiratory distress - Cardiovascular Cardiovascular Exam: Present: regular rate, normal rhythm - GI/Abdominal GI/Abdominal exam: Present: soft, normal bowel sounds - Extremities Exam Extremities exam: Present: normal inspection - Back Exam Back exam: Present: normal inspection - Neurological Exam Neurological exam: Present: alert, oriented X3 - Psychiatric Psychiatric exam: Present: normal affect, normal mood - Skin Skin exam: Present: warm, dry, intact, normal color. Absent: rash ED Course Vital Signs 12/08/20 12/08/20 12/08/20 17:10 17:15 17:31 Pulse Rate 79 93 H 71 Respiratory 25 H 24 Rate Blood Pressure 141/91 141/91 Blood Pressure 141/91 [Left] O2 Sat by Pulse 97 98 Oximetry 12/08/20 12/08/20 18:01 18:31 Pulse Rate 80 82 Respiratory 27 H 28 H Rate Blood Pressure 141/91 121/78 Blood Pressure [Left] O2 Sat by Pulse Oximetry - Reevaluation(s) Reevaluation #1: 12/08/20 18:58 Patient reevaluated following lab results and now diffusely shaking inconsistent with seizure activity, seemingly voluntary. Patient is asked to discontinue behavior so we may proceed with medical decision making. Patient immediately stopped shaking, is asked why she is voluntarily shaking and pretending to be involuntary, states she was not being taken seriously at her living facility wh en she was saying earlier that she was having a bad day and suicidal because today is her mom's birthday (her mother 1 year ago). Patient denies having plan to harm herself and is currently being housed in psychiatric facility. Neuro exam remains nonfocal. ED Medical Decision Making - Lab Data Result diagrams: 12/08/20 17:03 12/08/20 17:03 Lab Results 12/08/20 12/08/20 12/08/20 Range/Units 17:03 17:03 17:03 WBC 8.4 (4.5-11.0) K/mm3 RBC 4.70 (3.65-5.03) M/mm3 Hgb 11.5 (10.1-14.3) gm/dl Hct 36.2 (30.3-42.9) % MCV 77 L (79-97) fl MCH 25 L (28-32) pg MCHC 32 (30-34) % RDW 18.3 H (13.2-15.2) % Plt Count 470 H (140-440) K/mm3 Lymph % (Auto) 36.1 H (13.4-35.0) % [place] % (Auto) 10.4 H (0.0-7.3) % Eos % (Auto) 1.3 (0.0-4.3) % Baso % (Auto) 1.0 (0.0-1.8) % Lymph # (Auto) 3.0 (1.2-5.4) K/mm3 [place] # (Auto) 0.9 H (0.0-0.8) K/mm3 Eos # (Auto) 0.1 (0.0-0.4) K/mm3 Baso # (Auto) 0.1 (0.0-0.1) K/mm3 Seg Neutrophils % 51.2 (40.0-70.0) % Seg Neutrophils # 4.3 (1.8-7.7) K/mm3 Sodium 138 (137-145) mmol/L Potassium 3.8 (3.6-5.0) mmol/L Chloride 100.4 (98-107) mmol/L Carbon Dioxide 24 (22-30) mmol/L Anion Gap 17 mmol/L BUN 7 (7-17) mg/dL Creatinine 0.7 (0.6-1.2) mg/dL Estimated GFR > 60 ml/min BUN/Creatinine Ratio 10 % Glucose 94 (65-100) mg/dL Calcium 9.8 (8.4-10.2) mg/dL Magnesium 1.80 (1.7-2.3) mg/dL Total Creatine Kinase (30-135) units/L HCG, Qual Negative (Negative) 12/08/20 Range/Units 17:03 WBC (4.5-11.0) K/mm3 RBC (3.65-5.03) M/mm3 Hgb (10.1-14.3) gm/dl Hct (30.3-42.9) % MCV (79-97) fl MCH (28-32) pg MCHC (30-34) % RDW (13.2-15.2) % Plt Count (140-440) K/mm3 Lymph % (Auto) (13.4-35.0) % [place] % (Auto) (0.0-7.3) % Eos % (Auto) (0.0-4.3) % Baso % (Auto) (0.0-1.8) % Lymph # (Auto) (1.2-5.4) K/mm3 [place] # (Auto) (0.0-0.8) K/mm3 Eos # (Auto) (0.0-0.4) K/mm3 Baso # (Auto) (0.0-0.1) K/mm3 Seg Neutrophils % (40.0-70.0) % Seg Neutrophils # (1.8-7.7) K/mm3 Sodium (137-145) mmol/L Potassium (3.6-5.0) mmol/L Chloride (98-107) mmol/L Carbon Dioxide (22-30) mmol/L Anion Gap mmol/L BUN (7-17) mg/dL Creatinine (0.6-1.2) mg/dL Estimated GFR ml/min BUN/Creatinine Ratio % Glucose (65-100) mg/dL Calcium (8.4-10.2) mg/dL Magnesium (1.7-2.3) mg/dL Total Creatine Kinase 75 (30-135) units/L HCG, Qual (Negative) Vital Signs 12/08/20 12/08/20 12/08/20 17:10 17:15 17:31 Pulse Rate 79 93 H 71 Respiratory 25 H 24 Rate Blood Pressure 141/91 141/91 Blood Pressure 141/91 [Left] O2 Sat by Pulse 97 98 Oximetry 12/08/20 12/08/20 18:01 18:31 Pulse Rate 80 82 Respiratory 27 H 28 H Rate Blood Pressure 141/91 121/78 Blood Pressure [Left] O2 Sat by Pulse Oximetry Critical care attestation.: If time is entered above; I have spent that time in minutes in the direct care of this critically ill patient, excluding procedure time. ED Disposition Clinical Impression: Pseudoseizures Disposition: DC-01 TO HOME OR SELFCARE Is pt being admited?: No Condition: Stable Instructions: Conversion Disorder Referrals: PRIMARY CARE, [Primary Care Provider] - 3-5 Days
[2020-12-08 17:14] LABS: Basophils # (Auto) 0.1 K/mm3 (0.0-0.1); Eosinophils # (Auto) 0.1 K/mm3 (0.0-0.4); Eosinophils % (Auto) 1.3 % (0.0-4.3); Hematocrit 36.2 % (30.3-42.9); Hemoglobin 11.5 gm/dl (10.1-14.3); Lymphocytes % (Auto) 36.1 % (13.4-35.0); Mean Corpuscular HGB Conc 32 % (30-34); Mean Corpuscular Volume 77 fl (79-97); Monocytes # (Auto) 0.9 K/mm3 (0.0-0.8); Monocytes % (Auto) 10.4 % (0.0-7.3); Platelet Count 470 K/mm3 (140-440); Red Cell Distribution Width 18.3 % (13.2-15.2)
[2020-12-08 17:29] LABS: Blood Urea Nitrogen 7 mg/dL (7-17); Calcium 9.8 mg/dL (8.4-10.2); Hemolysis Index 17
[2020-12-08 17:34] LABS: BUN/Creatinine Ratio 10
[2020-12-08 21:49] LABS: Amphetamine Screen,Urine Negative; Benzodiazepines Screen,Urine Negative; Cannabinoid Screen,Urine Negative; Cocaine Screen,Urine Negative; Methadone Screen,Urine Negative; Opiate Screen,Urine Negative
[2020-12-08 22:04] LABS: Bacteria,Urine 1+ /HPF (Negative); Bilirubin,Urine NEG (Negative); Blood,Urine NEG (Negative); Color,Urine Yellow (Yellow); Mucus,Urine FEW /HPF; Protein,Urine <15 mg/dL mg/dL (Negative); Urobilinogen,Urine < 2.0 mg/dL (<2.0)
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
--- NOTE | 2020-12-10 08:51 | Progress Note ---
Subjective - Reason for Consult Consult date: 12/10/20 Reason for consult: SI w/plan - Chief Complaint Chief complaint: The patient was seen today, she is a known patient to me. She is sitting up in bed. She is a/o x 3. She is verbalizing SI. The patient says she's afraid to go home with her sister because she will kill herself. She says she will shoot herself or run into traffic. She says she has a gun at home "and will use it because the voices are telling me to." The patient states the voices are getting worse and telling her to kill herself. She says her medications haven't been working. REVIEW OF SYSTEMS Constitutional: Negative for weight loss ENT: Negative for stridor Respiratory: Negative for cough or hemoptysis All other systems reviewed and are negative MENTAL STATUS EXAMINATION General Appearance and Behavior: Age appropriate, fair hygiene, wearing appropriate clothes, lying in bed, good eye contact, cooperative with questioning and polite Cooperation: Participating/engaged Psychomotor Behavior: unremarkable and within normal limits Mood: Depressed Affect and affective range: decreased range, depressed Thought Process: Fluent/Logical Thought Content: Auditory Hallucinations Speech: Normal volume, Regular rate and rhythm Intellectual Functioning: Average Suicidal Ideation: Suicidal Homicidal Ideation: Denies HI Impulse Control: Unimpaired Insight and Judgment: Normal insight and judgment Memory: Normal Attention: Normal Orientation: Alert, oriented Assessment and Plan (1) Bipolar 1 disorder, depressed Current Visit: Yes Status: Acute (2) MDD (major depressive disorder) Current Visit: Yes Status: Acute RECOMMENDATIONS Risperidone 0.5mg po BID Depakote DR 250mg po BID Risks, benefits and alternatives of medications discussed with the patient, questions answered and consent obtained from patient. PSYCHOTHERAPY: Supportive psychotherapy provided MEDICAL: Per primary team DELIRIUM PRECAUTIONS: Please re-orient patient frequently, keep lights on during the day, and minimize benzodiazepines and opiates as these medications could worsen patient's confusion. DYE TANK TENDER: Per Medical Team DISPOSITION: Recommends acute inpatient psychiatric hospitalization at this time, as contract for safety was not met being that the patient has a plan to shoot herself and stated handgun at home. FOLLOW-UP: Will follow Thank you for the consult. Please contact with any questions and/or concerns. Mental Status Exam - Vital signs Last Vital Signs Temp 98.4 F 12/10/20 08:38 Pulse 90 03/25/21 08:38 Resp 16 12/10/20 08:39 BP 132/80 12/10/20 08:38 Pulse Ox 98 12/10/20 08:38
[2020-12-10] MEDS: risperiDONE 0.25 MG TAB PO SCH ×2 (09:48→21:55)
[2020-12-10] MEDS: DIVALPROEX DR 250 MG TAB PO SCH ×2 (09:48→21:55)
[2020-12-10] MEDS ORDERED: ZIPRASIDONE MESYLATE 20 MG VIAL IM ONE ×3 (11:12→20:32)
[2020-12-10] MEDS ORDERED: LORazepam 2 MG/ML VIAL IM ONE (21:30)
[2020-12-11 07:53] VITALS: BP 108/51
--- NOTE | 2020-12-11 11:08 | Progress Note ---
Subjective - Reason for Consult Consult date: 12/11/20 Reason for consult: SI - Chief Complaint Chief complaint: Per Nurse Note: Patient resting quietly. Easily to arouse. No s/s of distress noted. V/S are stable. Patient voiced no know issues or concerns. RN will continue to monitor. The patient was seen today, she is lying in bed. She says she is doing "so so." The patient says she's been trying to reach her sister but can't. She appeared irritated when talking about not being able to reach her sister. Advised the patient that she was not going to her sisters. She says she slept okay. She says she "still hear the voices telling me stuff." When asking the patient what were they telling her she says "they just saying a bunch of stuff." She says she hears them all the time. When asking the patient was she still suicidal, she says "so so, the medications helped I guess." REVIEW OF SYSTEMS Constitutional: Negative for weight loss ENT: Negative for stridor Respiratory: Negative for cough or hemoptysis All other systems reviewed and are negative MENTAL STATUS EXAMINATION General Appearance and Behavior: Age appropriate, fair hygiene, wearing appropriate clothes, lying in bed, good eye contact, cooperative with questioning and polite Cooperation: Participating/engaged Psychomotor Behavior: unremarkable and within normal limits Mood: "so so" Affect and affective range: decreased range, depressed Thought Process: Fluent/Logical Thought Content: Auditory Hallucinations Speech: Normal volume, Regular rate and rhythm Intellectual Functioning: Average Suicidal Ideation: "so so" Homicidal Ideation: Denies HI Impulse Control: Unimpaired Insight and Judgment: Normal insight and judgment Memory: Normal Attention: Normal Orientation: Alert, oriented Assessment and Plan (1) Bipolar 1 disorder, depressed Current Visit: Yes Status: Acute (2) MDD (major depressive disorder) Current Visit: Yes Status: Acute RECOMMENDATIONS d/c 1013 Risperidone 0.5mg po BID Depakote DR 250mg po BID Risks, benefits and alternatives of medications discussed with the patient, questions answered and consent obtained from patient. PSYCHOTHERAPY: Supportive psychotherapy provided MEDICAL: Per primary team DELIRIUM PRECAUTIONS: Please re-orient patient frequently, keep lights on during the day, and minimize benzodiazepines and opiates as these medications could worsen patient's confusion. GIN OPERATOR: Per Medical Team DISPOSITION: Do note Recommends acute inpatient psychiatric hospitalization at this time, safety contract for safety was met. FOLLOW-UP: Will sign off Thank you for the consult. Please contact with any questions and/or concerns. Mental Status Exam - Vital signs Last Vital Signs Temp 98.9 F 12/11/20 07:53 Pulse 66 12/11/20 07:53 Resp 20 12/11/20 07:53 BP 108/51 12/11/20 07:53 Pulse Ox 98 12/11/20 07:53
[2020-12-11] MEDS: risperiDONE 0.25 MG TAB PO SCH (11:17)
[2020-12-11] MEDS: DIVALPROEX DR 250 MG TAB PO SCH (11:17)
== END 2020-12-11 13:00 | disposition home or self-care (01) ==
LOC: ED 16:36
DX: F44.5 Conversion disorder with seizures or convulsions (principal); F25.0 Schizoaffective disorder, bipolar type; I10 Essential (primary) hypertension; E11.9 Type 2 diabetes mellitus without complications; J45.909 Unspecified asthma, uncomplicated; Z79.899 Other long term (current) drug therapy; Z20.822 Contact with and (suspected) exposure to COVID-19; Z91.013 Allergy to seafood; Z91.010 Allergy to peanuts; Z88.8 Allergy status to other drugs, medicaments and biological substances
CPT/HCPCS: 36415; 80048; 80307; 81001; 82550; 82962; 83735; 84703; 85025; 96372; 99285; J2060; J3486; U0003; 80320; G0480